=== PATIENT | male | born 1960 | race Caucasian/White ===

== ENCOUNTER 2023-03-14 21:40 | Emergency (ER) | payer MEDICARE, MEDICAID, SELFPAY ==
--- NOTE | ~2023-03-14 | CT_ITS ---
EXAMINATION: CT CHEST WITH CONTRAST CLINICAL INFORMATION: Left mastectomy. Swollen left arm. Evaluate for mass or SVC syndrome. COMPARISON: None available. TECHNIQUE: Multidetector volumetric CT imaging of the chest was obtained after the administration of 65 mL of Omnipaque 350 intravenous contrast without immediate adverse reactions. Axial MIP volume rendering provided. Sagittal and coronal reformatted images were obtained. This CT examination was performed using dose optimization techniques as appropriate, variously including the following: *Automated exposure control *Adjustment of mA and/or kV according to patient size (this includes techniques or standardized protocols for targeted exams where dose is matched to indication/reason for exam; i.e. extremities or head) *Use of iterative reconstruction technique DLP: 343 mGy-cm FINDINGS: LUNGS: There are scattered pulmonary nodules are shown on the solomon images, largest in the right upper lobe measures 7.5 x 6.4 mm. Additional pulmonary nodules measure 4 mm or less in mean diameter, as detailed extensively on the solomon images. MEDIASTINUM: Mild cardiomegaly. Great vessels normal caliber. No pericardial effusion. Coronary calcifications. Mildly enlarged precarinal lymph node measures 1.1 cm short axis. Imaged thyroid gland unremarkable. Venous structures are patent. PLEURA: There is no pleural effusion. No pleural mass or thickening. CHEST WALL/AXILLA: Left mastectomy. There is a soft tissue mass or lymph node in the left axilla along the posterior margin of the pectoralis minor measuring 3.0 x 1.6 x 1.1 cm. A mildly enlarged left axillary lymph node measures 1.7 x 1.0 cm. UPPER ABDOMEN: Simple cyst in the right kidney is benign. No follow-up imaging recommended. OSSEOUS STRUCTURES: No acute or suspicious osseous abnormalities. CT/CT chest w IV con IMPRESSION: * No evidence of SVC syndrome. * No venous obstruction etiology evident to explain the patient's left upper extremity swelling. There is however a soft tissue mass or lymph node in the left axilla along the posterior margin of the pectoralis minor measuring 3.0 x 1.6 x 1.1 cm, and a mildly enlarged left axillary lymph node measures 1.7 x 1.0 cm. These are suspicious for disease recurrence. * Mildly enlarged precarinal lymph node measures 1.1 cm short axis. This may be reactive. * Scattered pulmonary nodules are shown on the solomon images, largest in the right upper lobe measuring 7.0 mm mean diameter. Follow-up per oncology protocol. * Mild cardiomegaly. * Coronary calcifications.
--- NOTE | ~2023-03-14 | US_ITS ---
EXAMINATION: US VENOUS WITH DOPPLER UPPER EXTREMITY, LEFT CLINICAL INFORMATION: Left arm swelling COMPARISON: None available. TECHNIQUE: Ultrasound of the upper extremity is performed using compression sonography and color and pulse Doppler flow with assessment of augmentation of flow. There is also imaging and Doppler assessment of the jugular and subclavian veins. Spectral analysis with color-flow imaging is performed. FINDINGS: Respiratory variation, normal compression, and augmented flow are noted throughout the upper extremity including the axillary, brachial, cubital, and radial and ulnar veins. There is normal flow in the internal jugular and subclavian veins. There is no visible deep or superficial thrombophlebitis. If the patient's symptoms progress, a followup ultrasound in 5 -7 days might be of value to exclude proximal propagation from a nonvisualized distal arm vein. US/US venous duplex UE LT IMPRESSION: No DVT demonstrated in the left upper extremity
[2023-03-14 21:48] VITALS: BP 147/85; PULSE 87; RESP 18; TEMP 36.8; O2SAT 97; BMI 31.4
[2023-03-14 22:48] LABS: MANUAL DIFF FLAG NO
[2023-03-14 22:50] LABS: Basophils Percent Auto 0.5 % (0-2); Eosinophils Absolute Auto 0.2 X10*3/uL (0.0-0.4); Eosinophils Percent Auto 3.6 % (0-4); Hematocrit 41.2 % (42.0-52.0); Hemoglobin 13.6 g/dl (14.0-18.0); Imm Gran Abs Auto 0.02 X10*3/uL (0.00-0.03); Imm Gran Pct Auto 0.3 % (0.0-0.4); Lymphocytes Absolute Auto 2.8 X10*3/uL (1.2-4.9); Lymphocytes Percent Auto 43.2 % (20-40); Mean Corpuscular Hemoglobin 30.3 pg (27.0-33.0); Mean Corpuscular Volume 91.8 fL (80.0-98.0); Mean Platelet Volume 9.4 fL (9.4-12.4); Monocytes Absolute Auto 0.7 X10*3/uL (0.1-1.2); Monocytes Percent Auto 10.1 % (2-11); Neutrophils Absolute Auto 2.7 x10*3/uL (2.0-8.3); Neutrophils Percent Auto 42.3 % (45-73); Platelet Count 170 X10*3/uL (160-400); Red Blood Count 4.49 X10*6/uL (4.60-5.80); Red Cell Distribution Width 13.7 % (11.0-16.0); White Blood Count 6.4 X10*3/uL (4.8-10.8)
[2023-03-14 23:03] LABS: Alanine Aminotransferase 21 U/L (0-40); Albumin Level 3.7 g/dL (3.5-5.0); Alkaline Phosphatase 54 U/L (39-117); Anion Gap 11 (12-20); Aspartate Amino Transferase 23 U/L (5-37); Bilirubin Total 0.5 mg/dL (0.0-1.0); Blood Urea Nitrogen 25 mg/dL (9-16); Carbon Dioxide 25 mmol/L (22-29); Chloride 107 mmol/L (96-108); Creatinine Clr Calc Pharmacy 122.6; Estimated Glomerular Filt Rate > 60; Glucose Random 100 mg/dL (60-115); Potassium 4.1 mmol/L (3.3-5.1); Sodium 139 mmol/L (135-145); Total Protein 6.3 g/dL (6.5-8.0)
[2023-03-15 00:54] VITALS: BP 139/95; PULSE 82; RESP 14; TEMP 36.6; O2SAT 99
--- NOTE | 2023-03-15 01:34 | ED.GENADULT ---
HPI - General Adult General Chief complaint: General Medical Stated complaint: L arm swelling Time Seen by Provider: 03/15/23 01:33 Source: patient and family (, Mary) Mode of arrival: ambulatory Limitations: no limitations History of Present Illness HPI narrative: 62-year-old male who presents emergency department for evaluation of left hand and forearm swelling. Patient has a history of a left breast cancer status post mastectomy 5 years prior, he did not receive chemotherapy or radiation therapy but is on tamoxifen. He has been getting regular follow-ups with his oncology at the [facility]. Patient states that 2 weeks prior he noticed swelling of his left hand and left forearm the last approximately 3 days and then resolved. He states that 3 days prior to coming to the emergency department he again noticed swelling of his left hand and forearm which is got progressively worse. He called his PCP in was advised to go to the emergency department for evaluation. The patient denied fever, chills, chest pain, shortness of breath. He has not had any swelling of his right arm, neck, face. He has not noticed any flushing of his face or change in symptoms with lying flatter bending over. Related Data Home Medications Medication Instructions Recorded Confirmed tamoxifen 20 mg tablet 20 mg PO DAILY 02/11/21 08/23/22 Previous Rx's Medication Instructions Recorded atorvastatin 10 mg tablet 5 mg PO BEDTIME #90 tabs 07/08/22 metoprolol succinate 100 mg 100 mg PO BID #180 tabs 02/16/23 tablet,extended release 24 hr Allergies Allergy/AdvReac Type Severity Reaction Status Date / Time amlodipine Allergy Unknown cough Verified 08/23/22 07:54 sertraline [Zoloft] Allergy Unknown unkwown Verified 08/23/22 07:54 olmesartan AdvReac Intermediate cough Verified 08/23/22 07:54 Review of Systems Review of Systems: Yes all other systems are reviewed and are negative PMFSH Past Medical History PMFSH Narrative: Social history: Patient denies tobacco use. He occasionally drinks alcohol. He denies drug use. He is and his is here in the emergency department with him Medical History Annual physical exam Anxiety H/O ETOH abuse History of left breast cancer HTN (hypertension) Hyperlipidemia Surgical History H/O colonoscopy History of foot surgery Family History Family History Father No problems noted. Mother No problems noted. Social History Social History Housing: House Patient Tobacco Use Status: Never used Tobacco Smoked in Last 30 Days: No e-Cigarette/Vaping Use: Never Used Use of substances other than those prescribed or required for medical reasons: No Advance Directives: No Advance Directives Information Provided: No Current occupational status: unemployed Cognitive needs: No Hearing needs: No Vision needs: No Physical Exam ED Vital Signs: Vital Signs - 24 hr 03/14/23 21:48 03/15/23 00:54 Temperature 98.3 F 97.8 F Pulse Rate 87 82 Respiratory Rate 18 14 Blood Pressure 147/85 H 139/95 H Pulse Oximetry 97 99 Oxygen Delivery Method Room Air Room Air BMI result Body Mass Index 31.4 Const General: cooperative and no acute distress Orientation/consciousness: oriented to person and oriented to place Limitations: no limitations HENMT Head: Yes normal to inspection, Yes normocephalic and Yes atraumatic Ears: external ears normal General nose exam: Normal external nose present Face and sinus: Yes normal facial exam Mouth: Normal oral and palatal mucosa present Throat: Yes posterior oropharynx normal Eyes General: appearance normal, both eyes and all related structures Pupils: Equal, round and reactive pupils present Neck Neck: Yes normal visual inspection, Yes no lymphadenopathy, Yes trachea midline and Yes supple Chest Chest palpation & inspection: normal inspection of the chest and normal palpation of entire chest wall Resp Effort & Inspection: normal respiratory effort and able to speak in complete sentences Auscultation: clear to auscultation bilaterally Cardio Rate: regular rate Rhythm: regular rhythm Heart sounds: S1 normal heart sound present, S2 normal heart sound present and no murmurs GI Inspection: Yes normal to inspection Palpation (GI): Soft to palpation, nontender and no guarding Auscultation: normal bowel sounds General: Yes no CVA tenderness Back/Spine/Pelvis Back: no CVA tenderness Skin General skin exam: no rashes or lesions noted Neuro General: oriented to person and oriented to place Cranial nerves: Yes CN's II-XII intact bilaterally and Yes Equal, round and reactive pupils present Cognition (Neuro): normal cognition Motor exam (neuro): 5/5 motor strength present throughout Extrem Other: The patient does have swelling of his left hand which extends to just below the elbow, this is nonpitting edema, there is no increased redness or increased warmth, patient has no pain with palpation over the edematous area and there is no pain with movement of his joints Psych Appearance: grossly normal Speech and movement: Normal speech and movement present Affect: normal affect Attitude: cooperative Thought process: Normal thought process present Thought content: Normal thought content present Medical Decision Making Medical Decision Making [facility] Narrative: 62-year-old male with a history of left breast cancer status post mastectomy 5 years prior who presents emergency department for evaluation intermittent swelling of his left upper extremity with the 1st episode being 2 weeks prior lasting approximately 3 days with recurrence of the left hand and forearm swelling 3 days prior. Patient has had no pain or erythema over the hand or forearm. He has had no other concerning symptoms such as shortness of breath, dyspnea on exertion, neck swelling, facial swelling or facial erythema. I ordered laboratory evaluation to include CBC, CMP. Duplex ultrasound of the left upper extremity was also ordered 0213: My interpretation of the patient's diagnostic data is as follows: CBC was normal. CMP was normal. Duplex ultrasound of left upper extremity revealed no DVT. Given these findings I am concerned that the patient may have a chest tumor causing superior vena cava syndrome. Therefore I ordered a CT scan of the chest with IV contrast. 0437: CT scan revealed no mediastinal mass evidence for SVC syndrome however the patient does have abnormal left axillary adenopathy which is suspicious for recurrent disease. This may be causing poor panic drainage from the left arm which may explain the intermittent swelling. I did discuss this finding with the patient the patient's white the patient will need to follow-up with [facility] for re-evaluation of these findings. Patient was given printed and verbal instructions and discharged home. Differential Diagnosis Differential diagnosis includes but is not limited to left upper extremity DVT, nonpitting edema, inflammatory arthritis, superior vena cava syndrome secondary to chest tumor Admission/Observation Consideration of admission/observation: Escalation of care including admission/observation considered Lab Data [facility] Lab Attestation statement: I reviewed the patient's lab results. Please see [facility] 03/14/23 22:40 03/14/23 22:40 Labs: Lab Results 03/14/23 03/14/23 Range/Units 22:40 22:40 WBC 6.4 (4.8-10.8) X10*3/uL RBC 4.49 L (4.60-5.80) X10*6/uL Hgb 13.6 L (14.0-18.0) g/dl Hct 41.2 L (42.0-52.0) % MCV 91.8 (80.0-98.0) fL MCH 30.3 (27.0-33.0) pg MCHC 33.0 (31.0-36.0) g/dl RDW 13.7 (11.0-16.0) % Plt Count 170 (160-400) X10*3/uL MPV 9.4 (9.4-12.4) fL Immature Gran % (Auto) 0.3 (0.0-0.4) % Neut % (Auto) 42.3 L (45-73) % Lymph % (Auto) 43.2 H (20-40) % [place] % (Auto) 10.1 (2-11) % Eos % (Auto) 3.6 (0-4) % Baso % (Auto) 0.5 (0-2) % Lymph # (Auto) 2.8 (1.2-4.9) X10*3/uL [place] # (Auto) 0.7 (0.1-1.2) X10*3/uL Eos # (Auto) 0.2 (0.0-0.4) X10*3/uL Baso # (Auto) 0.0 (0.0-0.2) X10*3/uL Abs Immat Gran (auto) 0.02 (0.00-0.03) X10*3/uL Absolute Neuts (auto) 2.7 (2.0-8.3) x10*3/uL Absolute Nucleated RBC 0.000 (0.0-0.012) X10*3/uL Nucleated RBC % (auto) 0.0 (0.0-0.2) /100WBC Sodium 139 (135-145) mmol/L Potassium 4.1 (3.3-5.1) mmol/L Chloride 107 (96-108) mmol/L Carbon Dioxide 25 (22-29) mmol/L Anion Gap 11 L (12-20) BUN 25 H (9-16) mg/dL Creatinine 0.75 (0.5-1.4) mg/dL Estim Creat Clear Calc 122.6 Estimated GFR > 60 Random Glucose 100 (60-115) mg/dL Calcium 9.0 (8.4-10.2) mg/dL Total Bilirubin 0.5 (0.0-1.0) mg/dL AST 23 (5-37) U/L ALT 21 (0-40) U/L Alkaline Phosphatase 54 (39-117) U/L Total Protein 6.3 L (6.5-8.0) g/dL Albumin 3.7 (3.5-5.0) g/dL Radiology Impression Discussion of test interpretation with radiology: I have reviewed the radiologist's reading. Radiologist Impression: US venous duplex UE LT IMPRESSION: No DVT demonstrated in the left upper extremity Dictated By:Tylor Sauceda MD CT/CT chest w IV con IMPRESSION: * No evidence of SVC syndrome. * No venous obstruction etiology evident to explain the patient's left upper extremity swelling. There is however a soft tissue mass or lymph node in the left axilla along the posterior margin of the pectoralis minor measuring 3.0 x 1.6 x 1.1 cm, and a mildly enlarged left axillary lymph node measures 1.7 x 1.0 cm. These are suspicious for disease recurrence. * Mildly enlarged precarinal lymph node measures 1.1 cm short axis. This may be reactive. * Scattered pulmonary nodules are shown on the solomon images, largest in the right upper lobe measuring 7.0 mm mean diameter. Follow-up per oncology protocol. * Mild cardiomegaly. * Coronary calcifications. Dictated By:Hal Esquivel MD Independent Historian Clinical information obtained from an independent historian. History obtained from or confirmed by: Spouse Discharge Plan Discharge Clinical Impression: Left arm swelling, Axillary adenopathy Patient Disposition: Home, Self-Care Instructions: Lymphadenopathy (ED) Additional Instructions: Your blood work was normal. The duplex ultrasound of your left arm revealed no blood clot at this time. You will need a repeat ultrasound in 4-7 days to make sure that there is no blood clot that was not seen on the initial study. The CT scan of your chest with IV contrast revealed no chest mass and good flow in the superior vena cava therefore you do not have superior vena cava syndrome. The CT scan of your chest however did reveal abnormal lymph nodes in your left axillary area (underarm area). This is concerning and could be caused by recurrence of your breast cancer or may be caused by a another type of cancer. Call your oncologist at [facility] to date to discuss this finding to get urgent follow-up to determine if you have cancer is the cause of these enlarged lymph nodes. Follow-up with your doctor in 2 days. Please return to the emergency department if your symptoms get worse or if you develop any symptoms that are concerning to you. Below is the radiologist impression of your CT scan, you can read the underline portion to the oncologist office. CT chest w IV con IMPRESSION: * No evidence of SVC syndrome. * No venous obstruction etiology evident to explain the patient's left upper extremity swelling. There is however a soft tissue mass or lymph node in the left axilla along the posterior margin of the pectoralis minor measuring 3.0 x 1.6 x 1.1 cm, and a mildly enlarged left axillary lymph node measures 1.7 x 1.0 cm. These are suspicious for disease recurrence. * Mildly enlarged precarinal lymph node measures 1.1 cm short axis. This may be reactive. * Scattered pulmonary nodules are shown on the solomon images, largest in the right upper lobe measuring 7.0 mm mean diameter. Follow-up per oncology protocol. * Mild cardiomegaly. * Coronary calcifications. Dictated By:Hal Esquivel MD Prescriptions: No Action atorvastatin 10 mg tablet 5 mg PO BEDTIME Qty: 90 3RF metoprolol succinate 100 mg tablet extended release 24 hr 100 mg PO BID Qty: 180 3RF tamoxifen 20 mg tablet 20 mg PO DAILY
--- NOTE | 2023-03-15 02:09 | PC.NURSE ---
dr miller placed order for additional ct imaging with IV contrast. this rn placed iv 20 g in R AC. pt anxious at this time. at bedside. pt taken down to ct at this time
[2023-03-15 04:55] VITALS: BP 144/88; PULSE 69; RESP 18; TEMP 36.6; O2SAT 96
--- NOTE | 2023-03-15 05:20 | PC.NURSE ---
vss. skin pwd. pt ambulatory a discharge. pt's at bedside. iv removed at time of discharge. pt provided with disc copy of imaging. pt provided with discharge packet. pt verbalized understanding of discharge plan
== END 2023-03-15 05:24 | disposition home or self-care (01) ==
PROVIDERS: Emergency Provider Emergency Medicine Emergency Medical Services; PCP Internal Medicine
DX: R60.0 Localized edema (principal); R59.1 Generalized enlarged lymph nodes; M54.6 Pain in thoracic spine; R07.89 Other chest pain; Z79.899 Other long term (current) drug therapy
CPT/HCPCS: 36415; 71260; 80053; 85025; 93971; 99284

== ENCOUNTER 2024-01-26 08:17 | Outpatient (REF) | payer MEDICARE, MEDICAID, SELFPAY ==
[2024-01-26 10:26] LABS: MANUAL DIFF FLAG NO
[2024-01-26 10:50] LABS: Basophils Absolute Auto 0.1 X10*3/uL (0.0-0.2); Basophils Percent Auto 1.2 % (0-2); Eosinophils Absolute Auto 0.1 X10*3/uL (0.0-0.4); Eosinophils Percent Auto 2.7 % (0-4); Hematocrit 38.4 % (42.0-52.0); Hemoglobin 12.9 g/dl (14.0-18.0); Imm Gran Abs Auto 0.01 X10*3/uL (0.00-0.03); Imm Gran Pct Auto 0.2 % (0.0-0.4); Lymphocytes Percent Auto 48.7 % (20-40); Mean Corpuscular HGB Conc 33.6 g/dl (31.0-36.0); Mean Corpuscular Hemoglobin 33.6 pg (27.0-33.0); Mean Platelet Volume 9.3 fL (9.4-12.4); Monocytes Absolute Auto 0.4 X10*3/uL (0.1-1.2); Monocytes Percent Auto 8.5 % (2-11); Neutrophils Absolute Auto 1.6 x10*3/uL (2.0-8.3); Neutrophils Percent Auto 38.7 % (45-73); Platelet Count 180 X10*3/uL (160-400); Red Blood Count 3.84 X10*6/uL (4.60-5.80); Red Cell Distribution Width 12.5 % (11.0-16.0); White Blood Count 4.1 X10*3/uL (4.8-10.8)
[2024-01-26 11:09] LABS: Alanine Aminotransferase 12 U/L (0-40); Albumin Level 3.9 g/dL (3.5-5.0); Alkaline Phosphatase 70 U/L (39-117); Anion Gap 10 (12-20); Aspartate Amino Transferase 20 U/L (5-37); Bilirubin Total 0.5 mg/dL (0.0-1.0); Blood Urea Nitrogen 23 mg/dL (9-16); Calcium 9.6 mg/dL (8.4-10.2); Carbon Dioxide 29 mmol/L (22-29); Chloride 104 mmol/L (96-108); Cholesterol 161 mg/dL (<200); Estimated Glomerular Filt Rate > 60; Glucose Fasting 92 mg/dL (60-99); HDL Cholesterol 52 mg/dL (>40); LDL Cholesterol Calculated 86 mg/dL (<100); Potassium 4.1 mmol/L (3.3-5.1); Sodium 139 mmol/L (135-145); Total Protein 7.2 g/dL (6.5-8.0); Triglycerides 118 mg/dL (<150)
[2024-01-26 11:27] LABS: TSH reflex Free T4 1.18 uIU/mL (0.32-4.0)
== END 2024-01-26 08:18 | disposition home or self-care (01) ==
LOC: HO.HMGCLDS 08:17
PROVIDERS: PCP Internal Medicine; Visit Provider Internal Medicine
DX: Z00.00 Encounter for general adult medical examination without abnormal findings (principal); E78.5 Hyperlipidemia, unspecified; I10 Essential (primary) hypertension
CPT/HCPCS: 36415; 80053; 80061; 84443; 85025

== ENCOUNTER 2024-01-31 09:20 | Outpatient (AMB) | payer MEDICARE, MEDICAID, SELFPAY ==
[2024-01-31 09:21] VITALS: BP 128/74; PULSE 81; O2SAT 97; BMI 33.2
--- NOTE | 2024-01-31 09:21 | MHC.PC.OV ---
Vital Signs 01/31/24 09:21 Height 5 ft 11 in Weight 238 lb BMI 33.2 BP 128/74 Blood Pressure Location Rt brachial Position Sitting Pulse 81 Pulse Source Pulse Oximeter Pulse Oximetry (%) 97 Oxygen Delivery Method Room Air Intake Visit Reasons: Physical exam Intake Note: Pt is here today for PE. Allergies amlodipine Allergy (Unknown, Verified 01/31/24 09:23) cough sertraline [Zoloft] Allergy (Unknown, Verified 01/31/24 09:23) unkwown olmesartan Adverse Reaction (Intermediate, Verified 01/31/24 09:23) cough Tobacco use date assessed: 01/31/24 Fall risk assessment: No Falls in past year Last assessed Fall Risk: 01/31/24 Dental Screening Dental Screen Date: 01/31/24 Did you have a dental visit in the last 12 months?: Yes Did you have a dental problem in the last 6 months where you did not have access to dental care?: No Was dental information given to patient?: Patient has dentist HPI Physical exam HPI Details Pt presents for PE. Pt f/u with [facility] for recurrent breast ca, undergoing treatment. [facility] Medical History (Updated 01/31/24 @ 10:01 by Valerie Sharma MD) Annual physical exam History of left breast cancer Hyperlipidemia H/O ETOH abuse Anxiety HTN (hypertension) Surgical History H/O colonoscopy History of foot surgery Family History Father No problems noted. Mother No problems noted. Social History Housing: House Patient Tobacco Use Status: Never used Tobacco e-Cigarette/Vaping Use: Never Used service: No Current occupational status: unemployed Cognitive needs: No Hearing needs: No Vision needs: Yes Questionnaire PHQ-9 Over the last 2 weeks, how often have you been bothered by any of the following problems? 1. Little interest or pleasure in doing things: not at all 2. Feeling down, depressed, or hopeless: not at all 3. Trouble falling or staying asleep, or sleeping too much: not at all 4. Feeling tired or having little energy: not at all 5. Poor appetite or overeating: not at all 6. Feeling bad about yourself - or that you are a failure or have let yourself or your family down: not at all 7. Trouble concentrating on things, such as reading the newspaper or watching television: not at all 8. Moving or speaking so slowly that other people could have noticed. Or the opposite - being so fidgety or restless that you have been moving around a lot more than usual: not at all 9. Thoughts that you would be better off or of hurting yourself in some way: not at all Total score: 0 Depression Screening Interpretation: Negative Depression Screening Done: Yes Source: Developed by Drs. Collin Hall, Yanet Pascal, Shankar West and colleagues, with an educational shaquille from [employer]. Thrive Questionnaire Date Thrive assessed: 01/31/24 I am a: Patient What is your living situation today?: I have a steady place to live Within the past 12 months, did the food you bought not last and you didn't have the money to get more?: Never true Within the past 12 months, did you worry whether your food would run out before you got money to buy more?: Never true Do you have trouble paying for medicines?: No Do you have trouble getting transportation to medical appointments?: No Do you have trouble paying your heating and electricity bill?: No Do you have trouble taking care of your child, family member or friend?: No Do you have trouble with day-to-day activities such as bathing, preparing meals, shopping, managing finances, etc.?: No Are you currently unemployed and looking for a job?: No Are you interested in more education?: No Please select the resources that you would like help with: None THRIVE Score: 0 AUDIT C Alcohol Use Questionnaire (AUDIT-C) 1. How often do you have a drink containing alcohol?: Never 3. How often do you have six or more drinks on one occasion?: Never Total Score: 0 ALCIDES-7 AMB Questionnaire ALCIDES-7 Date ALCIEDS - 7 assessed: 01/31/24 Feeling nervous, anxious, or on edge: 0 = Not at all Not being able to stop or control worryin = Not at all Worrying too much about different things: 0 = Not at all Trouble relaxin = Not at all Being so restless that it is hard to sit still: 0 = Not at all Becoming easily annoyed or irritable: 0 = Not at all Feeling afraid as if something awful might happen: 0 = Not at all Total ALCIDES-7 score (0-4 normal; 5-9 mild; 10-14 moderate; 15-21 severe): 0 Source: Developed by Drs. Collin Hall, Yanet Pascal, Shankar West and colleagues, with an educational shaquille from [employer]. ALCIDES-7 Assessment Billing ALCIDES-7 Assessment Tool: ALCIDES-7 Assessment 53627 Review of Systems Const All systems reviewed & are unremarkable except as noted in HPI and below Reports no additional complaints Eyes Reports no additional complaints ENT Reports no additional complaints Card Reports no additional complaints Resp Reports no additional complaints GI Reports no additional complaints Reports no additional complaints Physical exam (Primary Care) Vital Signs: Last Vital Signs Pulse 81 01/31/24 09:21 BP 128/74 01/31/24 09:21 Pulse Ox 97 01/31/24 09:21 Oxygen Delivery Method Room Air 01/31/24 09:21 BMI result Body Mass Index 33.2 Tobacco/Smoking Status: Tobacco use Status Tobacco use date assessed 01/31/24 01/31/24 09:26 Patient Tobacco Use Status Never used Tobacco 01/31/24 09:26 e-Cigarette/Vaping Use Never Used 01/31/24 09:21 PHQ-9: PHQ-9 Score PHQ-9: Total score 0 01/31/24 09:31 Depression Screening Interpretation: Negative Thrive Assessment: Date of Thrive Assessment Date Thrive assessed 01/31/24 01/31/24 09:31 Const General: no acute distress HENMT Head: Yes normal to inspection Ears: hearing grossly normal bilaterally General nose exam: Normal external nose present Face and sinus: Yes normal facial exam Mouth: Normal oral and palatal mucosa present Throat: Yes posterior oropharynx normal Eyes General: appearance normal, both eyes and all related structures Neck Neck: Yes no lymphadenopathy and Yes supple Resp Effort & Inspection: normal respiratory effort Auscultation: clear to auscultation bilaterally Cardio Rhythm: regular rhythm Heart sounds: S1 normal heart sound present and S2 normal heart sound present GI Inspection: Yes normal to inspection Palpation (GI): Soft to palpation Percussion: Yes normal to percussion Auscultation: normal bowel sounds Assessment and Plan Assessment & Plan (1) Hyperlipidemia: Code(s): E78.5 - Hyperlipidemia, unspecified Plan: Continue statin (2) HTN (hypertension): Comment: BP goal <130/80 Code(s): I10 - Essential (primary) hypertension Plan: Continue metoprolol (3) Annual physical exam: Code(s): Z00.00 - Encounter for general adult medical examination without abnormal findings Plan: Well-balanced diet regular physical activity weight loss discussed with the patient (4) History of left breast cancer: Comment: s/p mastectomy 04/2018, on Tamoxifen for 5 yrs, recurrence [facility] LN [facility] Code(s): Z85.3 - Personal history of malignant neoplasm of breast Plan: Follow-up with oncology Coding Level of Care Code Est Pt Prev Care 40-64y(91255) Diagnoses Hyperlipidemia E78.5 HTN (hypertension) I10 Annual physical exam Z00.00 History of left breast cancer Z85.3 Additional Codes ALCIDES-7 Assessment Billing - ALCIDES-7 Assessment Tool: ALCIDES-7 Assessment [id number] ([id number])
== END 2024-01-31 10:01 | disposition home or self-care (01) ==
PROVIDERS: PCP Internal Medicine; Visit Provider Internal Medicine
DX: E78.5 Hyperlipidemia, unspecified (principal); I10 Essential (primary) hypertension; Z00.00 Encounter for general adult medical examination without abnormal findings; Z85.3 Personal history of malignant neoplasm of breast
CPT/HCPCS: 99396

== ENCOUNTER 2025-02-06 09:05 | Outpatient (AMB) | payer MEDICARE, SELFPAY ==
[2025-02-06 09:07] VITALS: BP 100/66; PULSE 89; RESP 18; TEMP 36.7; O2SAT 98; BMI 33.5
--- NOTE | 2025-02-06 09:07 | A.OFFPC_ITS ---
Vital Signs 02/06/25 09:07 Height 5 ft 11 in Weight 240 lb BMI 33.5 BP 100/66 Blood Pressure Location Rt brachial Position Sitting Respiration 18 Pulse 89 Pulse Source Pulse Oximeter Temp 98.0 F Temp Source Oral Pulse Oximetry (%) 98 Oxygen Delivery Method Room Air Intake Visit Reasons: PE Intake Note: Pt is here today for PE. Pt needs refill on Atorvastatin. Allergies amlodipine Allergy (Unknown, Verified 02/06/25 09:15) cough sertraline [Zoloft] Allergy (Unknown, Verified 02/06/25 09:15) unkwown olmesartan Adverse Reaction (Intermediate, Verified 02/06/25 09:15) cough Medication List - Last Reconciled 02/06/25 by Valerie Sharma MD abemaciclib (Verzenio) mg PO amlodipine 2.5 mg PO DAILY apixaban (Eliquis) 5 mg PO BID atorvastatin 5 mg (1/2 x 10 mg) PO BEDTIME famotidine 40 mg PO DAILY letrozole 2.5 mg PO DAILY metoprolol succinate ER 100 mg PO BID torsemide 20 mg PO DAILY Tobacco use date assessed: 02/06/25 Fall risk assessment: No Falls in past year Last assessed Fall Risk: 02/06/25 Dental Screening Dental Screen Date: 02/06/25 Did you have a dental visit in the last 12 months?: Yes Did you have a dental problem in the last 6 months where you did not have access to dental care?: No Was dental information given to patient?: Patient has dentist HPI PE HPI Details Patient presents for a physical. Hypertension hyperlipidemia , controlled current medications. He is currently undergoing treatment for metastatic breast CA. Patient has persistent AFib and is established with Cardiology. [facility] Medical History (Updated 02/06/25 @ 10:10 by Valerie Sharma MD) Annual physical exam History of left breast cancer Hyperlipidemia H/O ETOH abuse Anxiety HTN (hypertension) Surgical History History of lymph node excision H/O colonoscopy History of foot surgery Family History Father No problems noted. Mother No problems noted. Social History Housing: House Patient Tobacco Use Status: Never used Tobacco e-Cigarette/Vaping Use: Never Used service: No Current occupational status: unemployed Cognitive needs: No Hearing needs: No Vision needs: Yes Questionnaire PHQ-9 Over the last 2 weeks, how often have you been bothered by any of the following problems? 1. Little interest or pleasure in doing things: not at all 2. Feeling down, depressed, or hopeless: not at all 3. Trouble falling or staying asleep, or sleeping too much: not at all 4. Feeling tired or having little energy: not at all 5. Poor appetite or overeating: not at all 6. Feeling bad about yourself - or that you are a failure or have let yourself or your family down: not at all 7. Trouble concentrating on things, such as reading the newspaper or watching television: not at all 8. Moving or speaking so slowly that other people could have noticed. Or the opposite - being so fidgety or restless that you have been moving around a lot more than usual: not at all 9. Thoughts that you would be better off or of hurting yourself in some way: not at all Total score: 0 Depression Screening Interpretation: Negative Depression Screening Done: Yes 90995 - PHQ-9 Billing: Yes Source: Developed by Drs. Collin Hall, Yanet Pascal, Shankar West and colleagues, with an educational shaquille from [employer]. Thrive Questionnaire Date Thrive assessed: 02/06/25 I am a: Patient What is your living situation today?: I have a steady place to live Within the past 12 months, did the food you bought not last and you didn't have the money to get more?: Never true Within the past 12 months, did you worry whether your food would run out before you got money to buy more?: Never true Do you have trouble paying for medicines?: No Do you have trouble getting transportation to medical appointments?: No Do you have trouble paying your heating and electricity bill?: No Do you have trouble taking care of your child, family member or friend?: No Do you have trouble with day-to-day activities such as bathing, preparing meals, shopping, managing finances, etc.?: No Are you currently unemployed and looking for a job?: No Are you interested in more education?: No Please select the resources that you would like help with: None Currently or been in a relationship where the following occur: No concerns reported THRIVE Score: 0 AUDIT C Alcohol Use Questionnaire (AUDIT-C) 1. How often do you have a drink containing alcohol?: Never 3. How often do you have six or more drinks on one occasion?: Never Total Score: 0 ALCIDES-7 AMB Questionnaire ALCIDES-7 Date ALCIDES - 7 assessed: 02/06/25 Feeling nervous, anxious, or on edge: 0 = Not at all Not being able to stop or control worryin = Not at all Worrying too much about different things: 0 = Not at all Trouble relaxin = Not at all Being so restless that it is hard to sit still: 0 = Not at all Becoming easily annoyed or irritable: 0 = Not at all Feeling afraid as if something awful might happen: 0 = Not at all Total ALCIDES-7 score (0-4 normal; 5-9 mild; 10-14 moderate; 15-21 severe): 0 Source: Developed by Drs. Collin Hall, Yanet Pascal, Shankar West and colleagues, with an educational shaquille from [employer]. ALCIDES-7 Assessment Billing ALCIDES-7 Assessment Tool: ALCIDES-7 Assessment 46658 Review of Systems Const All systems reviewed & are unremarkable except as noted in HPI and below Reports no additional complaints Eyes Reports no additional complaints ENT Reports no additional complaints Card Reports no additional complaints Resp Reports no additional complaints GI Reports no additional complaints Reports no additional complaints Physical exam (Primary Care) Vital Signs: Last Vital Signs Temp 98.0 F 02/06/25 09:07 Pulse 89 02/06/25 09:07 Resp 18 02/06/25 09:07 BP 100/66 02/06/25 09:07 Pulse Ox 98 02/06/25 09:07 Oxygen Delivery Method Room Air 02/06/25 09:07 BMI result Body Mass Index 33.5 Tobacco/Smoking Status: Tobacco use Status Tobacco use date assessed 02/06/25 02/06/25 09:18 Patient Tobacco Use Status Never used Tobacco 02/06/25 09:18 e-Cigarette/Vaping Use Never Used 02/06/25 09:07 PHQ-9: PHQ-9 Score PHQ-9: Total score 0 02/06/25 09:19 Depression Screening Interpretation: Negative Thrive Assessment: Date of Thrive Assessment Date Thrive assessed 02/06/25 02/06/25 09:18 Currently or been in a relationship where the following occur: No concerns reported Const General: no acute distress HENMT Ears: hearing grossly normal bilaterally Face and sinus: Yes normal facial exam Mouth: Normal oral and palatal mucosa present Eyes General: appearance normal, both eyes and all related structures Neck Neck: Yes no lymphadenopathy and Yes supple Resp Effort & Inspection: normal respiratory effort Auscultation: clear to auscultation bilaterally Cardio Rhythm: regular rhythm Heart sounds: S1 normal heart sound present and S2 normal heart sound present GI Inspection: Yes normal to inspection Palpation (GI): Soft to palpation Percussion: Yes normal to percussion Auscultation: normal bowel sounds Immunizations pneumoc 20-em conj-dip cr(PF) 0.5 mL IM syringe Performing Provider: Valerie Sharma MD Performing Location: [facility] Administered by: BRIGHT Ward on 02/06/25 09:53 Dose Route Admin Location Dispensed Lot Number Expiration Date NDC Welt Sole Layer 0.5 mL IM Right Deltoid 0.5 mL [id number] 04/28/26 9040-4461-83 [employer] VIS Given Date VIS Provided VIS Publication Date 02/06/25 Single Vaccine 21 Eligibility Eligibility Date Funding Source Not [facility] Eligible 02/06/25 Private Coding Level of Care Code Est Pt Prev Care >65y(00432) Diagnoses HTN (hypertension) I10 Hyperlipidemia E78.5 New onset a-fib I48.91 History of left breast cancer Z85.3 Annual physical exam Z00.00 Additional Codes ALCIDES-7 Assessment Billing - ALCIDES-7 Assessment Tool: ALCIDES-7 Assessment 78924 ([id number]) PHQ-9 - 57922 - PHQ-9 Billing: Yes ([id number]) Assessment & Plan Assessment & Plan (1) HTN (hypertension): Comment: BP goal <130/80 Code(s): I10 - Essential (primary) hypertension Category: Medical Plan: Continue current medications (2) Hyperlipidemia: Code(s): E78.5 - Hyperlipidemia, unspecified Category: Medical Plan: Continue statin return for fasting blood work (3) New onset a-fib: Comment: Echo LVEF 60%, LAE,RV dilated, mildly reduced systolic function, PA systolic pressure 25-30 mmHg 09/20, f/u with cardiology Code(s): I48.91 - Unspecified atrial fibrillation Category: Medical Plan: Rate controlled on metoprolol anticoagulated on Eliquis. Patient is established with Cardiology (4) History of left breast cancer: Comment: s/p mastectomy 04/2018, on Tamoxifen for 5 yrs, recurrence in LN 01/19 f/u with [facility], stage IV status post radiation 2023, on Verzenio and letrozole Code(s): Z85.3 - Personal history of malignant neoplasm of breast Category: Medical Plan: Follow-up with oncology at [facility] (5) Annual physical exam: Code(s): Z00.00 - Encounter for general adult medical examination without abnormal findings Category: Medical Plan: Well-balanced diet regular physical activity weight loss discussed with the patient he had negative colonoscopy in 2018 Orders: Orders TSH reflex Free T4 Today E78.5 - Hyperlipidemia, unspecified, I10 - Essential (primary) hypertension, I48.91 - Unspecified atrial fibrillation Pneumococcal 20 Immunization Today Z23 - Encounter for immunization AMB EKG-In Office Today I10 - Essential (primary) hypertension, I48.91 - Unspecified atrial fibrillation Comprehensive [place]. Panel Fast Today E78.5 - Hyperlipidemia, unspecified, I10 - Essential (primary) hypertension, I48.91 - Unspecified atrial fibrillation Lipid Panel Today E78.5 - Hyperlipidemia, unspecified, I10 - Essential (primary) hypertension, I48.91 - Unspecified atrial fibrillation Medications: Refilled atorvastatin 5 mg (1/2 x 10 mg) PO BEDTIME 50 tabs 3RF
--- OUTSIDE RECORDS SUMMARY | 2025-02-06 09:41 | XMS_ITS ---
Author Name [facility] Organization Unknown History of Medication Use Medication Directions Dispensed Refills Start Date End Date [facility] clindamycin 1 % topical gel APPLY TO AFFECTED AREA TWICE A DAY active famotidine 40 mg tablet active atorvastatin 10 mg tablet TAKE 1/2 TABLET BY MOUTH EVERY DAY AT BEDTIME active letrozole 2.5 mg tablet TAKE 1 TABLET (2.5 MG TOTAL) BY MOUTH DAILY. FOLLOW INSTRUCTIONS GIVEN BY PROVIDER. active oseltamivir 75 mg capsule TAKE 1 CAPSULE BY MOUTH TWICE A DAY FOR 5 DAYS active lorazepam 0.5 mg tablet TAKE 1 TABLET BY MOUTH EVERY 6 HOURS NEEDED FOR ANXIETY. active torsemide 20 mg tablet TAKE 1 TABLET BY MOUTH DAILY active clindamycin HCl 300 mg capsule TAKE 1 CAPSULE BY MOUTH THREE TIMES A DAY FOR 10 DAYS active Eliquis 5 mg tablet TAKE 1 TABLET BY MOUTH TWICE A DAY active furosemide 20 mg tablet TAKE 1 TABLET BY MOUTH EVERY DAY DIRECTED active ipratropium bromide 21 mcg (0.03 %) nasal spray INHALE 2 SPRAYS BY NASAL ROUTE TWO TIMES A DAY active amlodipine 2.5 mg tablet TAKE 1 TABLET BY MOUTH EVERY DAY active metoprolol succinate ER 100 mg tablet,extended release 24 hr TAKE 1 TABLET BY MOUTH TWICE A DAY active Verzenio 150 mg tablet active oxycodone 5 mg tablet TAKE 1 TABLET (5 MG TOTAL) BY MOUTH EVERY 6 HOURS NEEDED (PARTIAL FILL OKAY) active Problems Problem Status Onset Date Problem Type Date of Resoluti on Source Pain of right wrist active 2024-12-20 ProblemAct ENS_AONECT Encounters Encounter Type Encounter Reason Primary Diagnosis Location Date Ambulatory [facility] 01/15/2025 Ambulatory [facility] 01/10/2025 Ambulatory [facility] 12/27/2024 Ambulatory [facility] 12/27/2024 Ambulatory [facility] 12/27/2024 Ambulatory [facility] 12/24/2024 Ambulatory [facility] 12/23/2024 Ambulatory [facility] 12/20/2024 Ambulatory [facility] 12/20/2024 Ambulatory [facility] 12/20/2024 Ambulatory [facility] 12[facility]20/2024 Ambulatory [facility] 12/20/2024 Ambulatory [facility] 12/20/2024 Ambulatory [facility] 12/20/2024 Ambulatory [facility] 12/19/2024 Ambulatory [facility] 12/19/2024
--- OUTSIDE RECORDS SUMMARY | 2025-02-06 09:41 | XMS_ITS | Encounter Summary ---
Author Organization [facility] Address [address] [facility] [address] [place] [address] Phone Care Team Providers Care Maori Liaison Adviser Name Role Phone Valerie Sharma MD Primary Care Provider [phone] Codi Mcdonald MD, MPH Unavailable + [phone] Nikhil Sandoval NURSING OFFICER Unavailable + [phone] Brynn Cohn WINDOWS SYSTEMS ARCHITECT Unavailable [phone] June Park MD Unavailable Encounter Details Date Type Department Care Team ([facility] Contact Info) Description 03/15/2023 Procedure Pass [facility] [place], Mammography, S[facility] Imaging Department [address] [place] [id number] Social History Tobacco Use Types Packs/Day Years Used Date Smoking Tobacco: Former Cigarettes Q uit: 10/30/1987 Smokeless Tobacco: Never Alcohol Use Standard Drinks/Week Comments Yes 0 (1 standard drink = 0.6 oz pur e alcohol) Education Answer Date Recorded Are you interested in more education? Not on fany e 02/24/2023 Are you concerned about learning? Not on file 02/24/2023 No 02/24/2023 No 02/24/2023 Sex and Gender Information Value Date Recorded Sex Assigned at Male 03/16/2023 8:51 AM EDT Gender Identity Male 03/16/2023 8:51 AM EDT Sexual Orientation Straight 11/01/2023 10 :13 AM EST documented as of this encounter Plan of Treatment Upcoming Encounters Date Type Department Care Team (Late Contact Info) Description 04/09/2025 12:50 PM EDT Blood Draw Laboratory Services, [facility] [email or web address] [address] [place], [place] Codi Mcdonald MD, MPH [address] [place] [address] [email or web address] 04/09/2025 1:30 PM EDT Office Visit [facility], [facility] [place] [facility], [facility] [address], [address] [place] [address] Codi Mcdonald MD, MPH [address] [place] [address] [email or web address] 04/09/2025 2:15 PM EDT Infusion Infusion Therapy Services [facility], [facility] [address] [facility] [facility] [address] [place] [address] oCdi Mcdonald MD, MPH [address] [place] [address] [email or web address] documented as of this encounter Visit Diagnoses Not on filedocumented in this encounter Additional Health Concerns Infection Onset Date Last Indicated Resolved Time CoV-Exposed 06/17/2023 06/19/2023 06/27/2023 1:24 AM EDT documented as of this encounter Care Teams Maori Liaison Adviser Relationship Specialty Start Date End Date Valerie Sharma MD [address] [place] [address] PCP - General Internal Medicine 05/30/18 Codi Mcdonald MD, MPH [address] [place] [phone] [email or web address] Medical Oncology 12/25/19 Nikhil Sandoval CNP [address] [place] [phone] [email or web address] Oncology 03/07/22 Brynn Cohn, [address] [address] [email or web address] Phys Ther 06/30/23 June Park MD [address] [place] [phone] [email or web address] Radiation Oncology 07/22/24 documented as of this encounter Additional Source Comments The information contained in this document represents components of the legal health record. It is not the complete legal health record.[facility]
--- OUTSIDE RECORDS SUMMARY | 2025-02-06 09:41 | XMS_ITS | Encounter Summary ---
Author Organization [facility] Address [address] [facility] [address] [place] [address] Phone Care Team Providers Care Owner/Photographer Name Role Phone Valerie Sharma MD Primary Care Provider [phone] Codi Mcdonald MD, MPH Unavailable + [phone] Nikhil Sandoval [facility] Unavailable + [phone] Brynn Cohn [facility] Unavailable [phone] June Park MD Unavailable Encounter Details Date Type Department Care Team (Late st Contact Info) Description 08/02/2021 Procedure Pass [facility] [place], Mammography, Sindi Lank Imaging Department [address] [place] [address] Social History Tobacco Use Types Packs/Day Years Used Date Smoking Tobacco: Former Cigarettes Q uit: 1988 Smokeless Tobacco: Never Alcohol Use Standard Drinks/Week Comments Yes 0 (1 standard drink = 0.6 oz pur e alcohol) Sex and Gender Information Value Date Recorded Sex Assigned at Male 03/16/2023 8:51 AM EDT Gender Identity Male 03/16/2023 8:51 AM EDT Sexual Orientation Straight 11/01/2023 10 :13 AM EST documented as of this encounter Plan of Treatment Upcoming Encounters Date Type Department Care Team (Late st Contact Info) Description 04/09/2025 12:50 PM EDT Blood Draw Laboratory Services, [facility] [place] [address] [facility] [address] [place] [address] Codi Mcdonald MD, MPH [address] [place] [phone] [email or web address] 04/09/2025 1:30 PM EDT Office Visit Center for Breast Oncology, Trisha Anshul [place] [facility], [facility] 450 [facility], [address] [address] Codi Mcdonald MD, MPH [address] [place] [phone] [email or web address] 04/09/2025 2:15 PM EDT Infusion Infusion Therapy Services [address] [place] [address] Codi Mcdonald MD, MPH [address] [place] [phone] [email or web address] documented as of this encounter Visit Diagnoses Not on filedocumented in this encounter Additional Health Concerns Infection Onset Date Last Indicated Resolved Time CoV-Exposed 06/17/2023 06/19/2023 06/27/2023 1:24 AM EDT documented as of this encounter Care Teams Owner/Photographer Relationship Specialty Start Date End Date Valerie Sharma MD [address] [place] [address] PCP - General Internal Medicine 05/30/18 Codi Mcdonald MD, MPH [address] [place] [phone] [email or web address] Medical Oncology 12/25/19 Nikhil Sandoval, JUNIOR SYSTEMS ANALYST [address] [place] [phone] [email or web address] 03/07/22 Brynn Cohn [address] [address] [email or web address] Manager 06/30/23 June Park MD [address] [place] [phone] [email or web address] Radiation Oncology 07/22/24 documented as of this encounter Additional Source Comments The information contained in this document represents components of the legal health record. It is not the complete legal health record.[facility]
--- OUTSIDE RECORDS SUMMARY | 2025-02-06 09:41 | XMS_ITS | Encounter Summary ---
Author Organization [facility] Address [address] [place] [address] Phone Care Team Providers Care French Binder Name Role Phone Valerie Sharma MD Primary Care Provider [phone] Codi Mcdonald MD, MPH Unavailable [phone] Nikhil Sandoval [facility] Unavailable [phone] Brynn Cohn [facility] Unavailable [phone] June Park MD Unavailable Encounter Details Date Type Department Care Team (Late st Contact Info) Description 03/07/2022 Procedure Pass [facility] [address] [place] [address] Social History Tobacco Use Types Packs/Day Years [...] 12:50 PM EDT Blood Draw Laboratory Services, [facility] [place] [address] [address] Codi Mcdonald MD, MPH [address] [place] [phone] [email or web address] 04/09/2025 1:30 PM EDT Office Visit Center for Breast [facility], Trisha [facility] [place] [facility], [facility] 450 [facility], [address] [address] Codi Mcdonald MD, MPH [address] [place] [phone] [email or web address] 04/09/2025 2:15 PM EDT Infusion Infusion Therapy Services [address] [place] [address] Codi Mcdonald MD, MPH [address] [place] [phone] [email or web address] documented as of this encounter Visit Diagnoses Not on filedocumented in this encounter Additional Health Concerns Infection Onset Date Last Indicated Resolved Time CoV-Exposed 06/17/2023 06/19/2023 06/27/2023 1:24 AM EDT documented as of this encounter Care Teams French Binder Relationship Specialty Start Date End Date Valerie Sharma MD [address] [place] [address] PCP - General Internal Medicine 05/30/18 Codi Mcdonald MD, MPH [address] [place] [phone] [email or web address] Medical Oncology 12/25/19 Nikhil Sandoval, LAND SURVEYOR [address] [place] [phone] [email or web address] Oncology 03/07/22 Brynn Cohn [address] [address] [email or web address] Motorcycle Repair Shop Supervisor 06/30/23 June Park MD [address] [place] [phone] [email or web address] Radiation Oncology 07/22/24 documented as of this encounter Additional Source Comments The information contained in this document represents components of the legal health record. It is not the complete legal health record.[facility]
--- OUTSIDE RECORDS SUMMARY | 2025-02-06 09:41 | XMS_ITS | Clinical Summary ---
Author Organization [facility] Address [address] [place] [address] Care Team Providers Care Shaker Operator Name Role Phone Valerie Sharma MD Primary Care Provider [phone] Allergies No known active allergies Medications Medication Sig Dispensed Refills Start Date End Date Status metoprolol succinate (TOPROL-XL) 24 hr tablet 100 mg Take 100 mg by mouth daily. 0 Active Atorvastatin Calcium (LIPITOR PO) Take 5 mg by mouth daily. 0 Active amLODIPine (NORVASC) tablet 5 mg Take 5 mg by mouth daily. 0 Active Active Problems No known active problems Family History Medical History Relation Name Comments Cancer Brother 1 lung cancer No Sig Med Hx Brother 2 No Sig Med Hx Brother 3 No Sig Med Hx Brother 4 Other Brother 5 accidental geat h at 12 years Other Father Accidental deat h Alzheimer's disease Mother Cancer Sister 1 Blood cancer Other Sister 2 working up for breast cancer No Sig Med Hx Sister 3 No Sig Med Hx Son 1 No Sig Med Hx Son 2 Relation Name Status Comments Brother 1 Alive Brother 2 Alive Brother 3 Alive Brother 4 Alive Brother 5 Father Mother Sister 1 Alive Sister 2 Alive Sister 3 Alive Son 1 Alive Son 2 Alive Social History Tobacco Use Types Packs/Day Years Used Date Smoking Tobacco: Former Cigarettes 0.5 7 Q uit: 05/21/1988 Smokeless Tobacco: Never Alcohol Use Standard Drinks/Week Comments Yes 0 (1 standard drink = 0.6 oz pur e alcohol) occasionally Sex and Gender Information Value Date Recorded Sex Assigned at Not on file Gender Identity Not on file Sexual Orientation Not on file Last Filed Vital Signs Vital Sign Reading Time Taken Comments Blood Pressure 137/77 05/21/2018 2:03 PM EDT Pulse 60 05/21/2018 2:03 PM EDT Temperature - - Respiratory Rate - - Oxygen Saturation - - Inhaled Oxygen Concentration - - Weight 104.1 kg (229 lb 6.4 oz) 05/21/2018 2:03 PM EDT Height 180.3 cm (5' 11 ) 05/21/2018 2:03 PM EDT Body Mass Index 31.99 05/21/2018 2:03 PM EDT Plan of Treatment Health Maintenance Due Date Last Done Comments Hepatitis C Screening 1959 COVID-19 Vaccine (#1) 1959 Depression Screening 1971 Preventative Health Evaluation 1977 DTap / Tdap / Td (1 - Tdap) 1978 Colon Cancer Screening (Colonoscopy) 2004 Shingrix-Zoster Vaccine (1 of 2) 2009 Fall Risk Assessment 2024 Pneumococcal Vaccine (1 of 1 - PCV) 2024 Influenza Vaccine (#1) 2024 RSV Adult > 60+ Yrs or Pregn ant (1 - 1-dose 75+ series) 2034 Hepatitis B Vaccines Aged Out No long er eligible based on patient's age to complete this topic Pneumococcal Vaccine Aged Out No long er eligible based on patient's age to complete this topic RSV Ped < 20 months Aged Out No longe r eligible based on patient's age to complete this topic Care Teams Shaker Operator Relationship Specialty Start Date End Date Valerie Sharma MD [address] [place] [address] PCP - General Oracle Adf Consultant 05/17/18
--- OUTSIDE RECORDS SUMMARY | 2025-02-06 09:41 | XMS_ITS | Encounter Summary ---
Author Organization [facility] Address [address] [place] [address] Phone Care Team Providers Care Manager Of Case Management Name Role Phone Valerie Sharma MD Primary Care Provider [phone] Codi Mcdonald MD, MPH Unavailable + [phone] Nikhil Sandoval [facility] Unavailable + [phone] [facility] Unavailable [phone] June Park MD Unavailable Encounter Details Date Type Department Care Team (Late st Contact Info) Description 06/17/2024 Procedure Pass [facility], Ct Scan - [address] [address] Social History Tobacco Use Types Packs/Day Years Used Date Smoking Tobacco: Former Cigarettes 0.5 7 1 981 - 10/30/1987 Smokeless Tobacco: Never Alcohol Use Standard Drinks/Week Comments Not Currently 0 (1 standard drink = 0.6 oz pur e alcohol) Education Answer Date Recorded Are you interested in more education? Not on fany e 02/24/2023 Are you concerned about learning? Not on file 02/24/2023 No 02/24/2023 No 02/24/2023 Digital Access Answer Date Recorded No 03/22/2023 No 03/22/2023 Reliable internet access at home? Not on file 03/22/2023 Device with a working camera? Not on file Sex and Gender Information Value Date Recorded Sex Assigned at Male 03/16/2023 8:51 AM EDT Gender Identity Male 03/16/2023 8:51 AM EDT Sexual Orientation Straight 11/01/2023 10 :13 AM EST documented as of this encounter Plan of Treatment Upcoming Encounters Date Type Department Care Team (Late st Contact Info) Description 04/09/2025 12:50 PM EDT Blood [facility], [facility] [address] [place] [address] Codi Mcdonald MD, MPH [address] [place] [address] [email or web address]@[facility] 04/09/2025 1:30 PM EDT Office Visit [facility], [facility] [place] [facility], [facility] [address] [place] [address] Codi Mcdonald MD, MPH [address] [place] [address] Veronica@[facility] 04/09/2025 2:15 PM EDT Infusion Infusion Therapy Services [address] [facility] [address] [address] [place] [address] Codi Mcdonald MD, MPH [address] [place] [address] Veronica@[facility] documented as of this encounter Visit Diagnoses Not on filedocumented in this encounter Additional Health Concerns Assessment Noted Time PHQ-2 Depression Total Score: 1 04/25/20 24 8:06 AM EDT documented as of this encounter Care Teams Manager Of Case Management Relationship Specialty Start Date End Date Valerie Sharma MD [address] [place] [address] PCP - General Internal Medicine 05/30/18 Codi Mcdonald MD, MPH [address] [place] [address] [email or web address] Medical Oncology 12/25/19 Nikhil Sandoval, JOSELITO [address] [place] [address] [email or web address] Oncology 03/07/22 Brynn Cohn, [address] [address] [email or web address] Grocery Stocker 06/30/23 June Park MD [address] [place] [address] [email or web address] Radiation Oncology 07/22/24 documented as of this encounter Additional Source Comments The information contained in this document represents components of the legal health record. It is not the complete legal health record.[facility]
--- OUTSIDE RECORDS SUMMARY | 2025-02-06 09:41 | XMS_ITS | Encounter Summary ---
Author Organization [facility] Address [address] [place] [address] Phone Care Team Providers Care Correctional Guard Name Role Phone Valerie Sharma MD Primary Care Provider [phone] Codi Mcdonald MD, MPH Unavailable [phone] Nikhil Sandoval [facility] Unavailable + [phone] Brynn Cohn [facility] Unavailable [phone] June Park MD Unavailable Encounter Details Date Type Department Care Team (Late st Contact Info) Description 04/19/2023 Procedure Pass [facility] Cross Sectional Interventional Radiology [address] [place] [address] Social History Tobacco Use Types Packs/Day Years [...] 12:50 PM EDT Blood Draw Laboratory Services, [facility] [address] [place] [address] Codi Mcdonald MD, MPH [address] [place] [address] Veronica@[email or web address] 04/09/2025 1:30 PM EDT Office Visit Center for Breast Oncology, [facility] [place] [facility], [facility] [address] [place] [address] Codi Mcdonald MD, MPH [address] [place] [address] Veronica@[facility] 04/09/2025 2:15 PM EDT Infusion Infusion Therapy Services [address], [facility] [address] [place] [address] Codi Mcdonald MD, MPH [address] [place] [address] Veronica@[facility] documented as of this encounter Visit Diagnoses Not on filedocumented in this encounter Additional Health Concerns Infection Onset Date Last Indicated Resolved Time CoV-Exposed 06/17/2023 06/19/2023 06/27/2023 1:24 AM EDT documented as of this encounter Care Teams Correctional Guard Relationship Specialty Start Date End Date Valerie Sharma MD [address] [place] [address] PCP - General Internal Medicine 05/30/18 Codi Mcdonald MD, MPH [address] [place] [address] Veronica@[email or web address] Medical Oncology 12/25/19 Nikhil Sandoval, JOSELITO [address] [place] [address] [email or web address] Oncology 03/07/22 Brynn Cohn, [address] [address] [email or web address] Project Manager/Team Coach 06/30/23 June Park MD [address] [place] [address] [email or web address] Radiation Oncology 07/22/24 documented as of this encounter Additional Source Comments The information contained in this document represents components of the legal health record. It is not the complete legal health record.[facility]
--- OUTSIDE RECORDS SUMMARY | 2025-02-06 09:41 | XMS_ITS | Encounter Summary ---
Author Organization [facility] Address [address] [facility] [address] [place] [address] Phone Care Team Providers Care Cabana Attendant Name Role Phone Valerie Sharma MD Primary Care Provider [phone] Codi Mcdonald MD, MPH Unavailable [phone] Nikhil Sandoval [facility] Unavailable + [phone] Brynn Cohn [facility] Unavailable [phone] June Park MD Unavailable Encounter Details Date Type Department Care Team (Late st Contact Info) Description 04/07/2023 Procedure Pass [facility] Imaging Department, [facility] Cancer [place], [place] [address] [facility] [address] [place] [address] Social History Tobacco Use Types Packs/Day Years [...] 12:50 PM EDT Blood Draw Laboratory Services, [facility] [address] [place] [address] Codi Mcdonald MD, MPH [address] [place] [address] Veronica@[facility] 04/09/2025 1:30 PM EDT Office Visit Center for Breast Oncology, [facility] [place] [facility], [facility] [address] [place] [address] Codi Mcdonald MD, MPH [address] [place] [address] Veronica@[facility] 04/09/2025 2:15 PM EDT Infusion Infusion Therapy Services [address] [place] [address] Codi Mcdonald MD, MPH [address] [place] [phone] Veronica@[facility] documented as of this encounter Visit Diagnoses Not on filedocumented in this encounter Additional Health Concerns Infection Onset Date Last Indicated Resolved Time CoV-Exposed 06/17/2023 06/19/2023 06/27/2023 1:24 AM EDT documented as of this encounter Care Teams Cabana Attendant Relationship Specialty Start Date End Date Valerie Sharma [place] [address] PCP - General Internal Medicine 8/1/18 Codi Mcdonald MD, MPH [address] [place] [address] Veronica@[email or web address] Medical Oncology 12/25/19 Nikhil Sandoval, JOSELITO [address] [place] [address] [email or web address]@[email or web address] Oncology 03/07/22 Brynn Cohn, [address] [address] [email or web address] Pig Casting Machine Operator 06/30/23 June Park MD [address] [place] [address] [email or web address] Radiation Oncology 07/22/24 documented as of this encounter Additional Source Comments The information contained in this document represents components of the legal health record. It is not the complete legal health record.[facility]
--- OUTSIDE RECORDS SUMMARY | 2025-02-06 09:41 | XMS_ITS | Encounter Summary ---
Author Organization [facility] Address [address] [facility] [address] [place] [address] Phone Care Team Providers Care Newspaper Managing Editor Name Role Phone Valerie Sharma MD Primary Care Provider [phone] Codi Mcdonald MD, MPH Unavailable [phone] Nikhil Sandoval [facility] Unavailable + [phone] [facility] Unavailable [phone] June Park MD Unavailable Encounter Details Date Type Department Care Team (Late st Contact Info) Description 04/07/2023 Procedure Pass [facility]indi [facility]ank Imaging Department, [facility] Cancer [place], [place] [address] [facility], [address] [place] [address] Social History Tobacco Use Types Packs/Day Years [...] 12:50 PM EDT Blood Draw Laboratory Services, [facility] [address] [place] [address] Codi Mcdonald MD, MPH [address] [place] [address] Veronica@[email or web address] 04/09/2025 1:30 PM EDT Office Visit Center for Breast Oncology, [facility], [facility] [address] [place] [address] Codi Mcdonald MD, MPH [address] [place] [address] Veronica@[facility] 04/09/2025 2:15 PM EDT Infusion Infusion Therapy Services [address] [place] [address] Codi Mcdonald MD, MPH [address] [place] [address] Veronica@[facility] documented as of this encounter Visit Diagnoses Not on filedocumented in this encounter Additional Health Concerns Infection Onset Date Last Indicated Resolved Time CoV-Exposed 06/17/2023 06/19/2023 06/27/2023 1:24 AM EDT documented as of this encounter Care Teams Newspaper Managing Editor Relationship Specialty Start Date End Date Valerie Sharma MD [facility] [place] [address] PCP - General Internal Medicine 8/1/18 Codi Mcdonald MD, MPH [address] [place] [address] Veronica@[email or web address] Medical Oncology 12/25/19 Nikhil Sandoval, JOSELITO [address] [place] [address] Pablo@[facility] Oncology 03/07/22 Brynn Cohn, [address] [address] [email or web address] Panel Instrument Repairer 06/30/23 June Park MD [address] [place] [phone] [email or web address] Radiation Oncology 07/22/24 documented as of this encounter Additional Source Comments The information contained in this document represents components of the legal health record. It is not the complete legal health record.[facility]
--- OUTSIDE RECORDS SUMMARY | 2025-02-06 09:41 | XMS_ITS | Encounter Summary ---
Author Organization [facility] Address [address] [place] [address] Phone Care Team Providers Care Automobile And Property Underwriter Name Role Phone Valerie Sharma MD Primary Care Provider [phone] Codi Mcdonald MD, MPH Unavailable [phone] Nikhil Sandoval [facility] Unavailable + [phone] Brynn Cohn [facility] Unavailable [phone] June Park MD Unavailable Encounter Details Date Type Department Care Team (Late st Contact Info) Description 07/11/2024 Procedure Pass [facility] Periop 1st floor [address] [place] [address] Social History Tobacco Use Types Packs/Day Years [...] with a working camera? Not on file Intimate Partner Violence Answer Date R ecorded Are you denied basic needs s uch as food, clothing, or medical care? No 07/11/2024 In the past 12 months have y ou been in a relationship with a person who hurts, threatens, or tries to control you? No 07/11/2024 Are you denied basic needs s uch as food, clothing, or medical care? No 07/11/2024 In the past 12 months have y ou been in a relationship with a person who hurts, threatens, or tries to control you? No 07/11/2024 Sex and Gender Information Value Date Recorded Sex Assigned at Male 03/16/2023 8:51 AM EDT Gender Identity Male 03/16/2023 8:51 AM EDT Sexual Orientation Straight 11/01/2023 10 :13 AM EST documented as of this encounter Plan of Treatment Upcoming Encounters Date Type Department Care Team (Late st Contact Info) Description 04/09/2025 12:50 PM EDT Blood Draw Laboratory Services, [facility] [address] [place] [address] [employer] [facility] 2 [place] [address] Codi Mcdonald MD, MPH [address] [place] [address] Veronica@[email or web address] 04/09/2025 1:30 PM EDT Office Visit Center for Breast Oncology, Trisha [facility]ravo [place] [facility], [facility] [address] [place] [address] [employer] [facility], [address] [place] [address] Codi Mcdonald MD, MPH [address] [place] [address] Veronica@[email or web address] 04/09/2025 2:15 PM EDT Infusion Infusion Therapy Services [place] [address], [facility] [address] [place] [employer] [facility] 9 [place] [address] Codi Mcdonald MD, MPH [address] [place] [address] Veronica@[email or web address] documented as of this encounter Visit Diagnoses Not on filedocumented in this encounter Additional Health Concerns Assessment Noted Time PHQ-2 Depression Total Score: 1 04/25/20 24 8:06 AM EDT documented as of this encounter Care Teams Automobile And Property Underwriter Relationship Specialty Start Date End Date Valerie Sharma MD [address] [place] [address] PCP - General Internal Medicine 05/30/18 Codi Mcdonald MD, MPH [address] [place] [address] [email or web address] Medical Oncology 12/25/19 Nikhil Sandoval, FASHION SUPERVISOR [address] [place] [phone] [email or web address] Oncology 03/07/22 Brynn Cohn, [address] [address] [email or web address] Field Technical Specialist 06/30/23 June Park MD [address] [place] [address] [email or web address] Radiation Oncology 07/22/24 documented as of this encounter Additional Source Comments The information contained in this document represents components of the legal health record. It is not the complete legal health record.[facility]
--- OUTSIDE RECORDS SUMMARY | 2025-02-06 09:42 | XMS_ITS | Referral Summary ---
Author Organization [facility] Address [address] [place] [address] Care Team Providers Care Application Integration Architect Name Role Phone ZacharyValerie Primary Care Provider [phone] Encounters Date Type Department Care Team Description 11/11/2024 2:43 PM EST - 11/11/2024 11:59 PM [facility] Hospital Encounter [facility] Rad Onc [address] [place] [address] Discharge Disposition: Home or Self Care () 11/11/2024 9:20 AM EST - 11/11/2024 2:42 PM [facility] Hospital Encounter [facility] Rad Onc [address] [place] [address] Mani Feliciano MD Discharge Disposition: Home or Self Care () from Last 3 Months Allergies No known active allergies Medications tamoxifen (NOLVADEX) 20 mg tablet 01/26/2022 Active sildenafiL (VIAGRA) 100 mg tablet Take 100 mg by mouth daily as needed. 11/01/2021 Active atorvastatin calcium (LIPITOR ORAL) Take 10 mg by mouth daily. Active metoprolol succinate XL (TOPROL XL) 100 mg tablet 11/03/2021 Active famotidine (PEPCID) 40 mg tablet Take 20 mg by mouth 2 times daily. 10/23/2024 Active furosemide (LASIX) 20 mg tablet Take 20 mg by mouth once a day. Active letrozole (FEMARA) 2.5 mg tablet Take 2.5 mg by mouth daily. 07/03/2024 Active leuprolide (LUPRON DEPOT 3 MONTH) 11.25 mg IM injection Inject 11.25 mg into the shoulder, thigh, or buttocks muscle as directed every 3 months. Active apixaban (ELIQUIS) 2.5 mg tablet Take 5 mg by mouth every 12 hours. Active amLODIPine (NORVASC) 5 mg tablet Take 5 mg by mouth once a day. Active cetirizine (ZyrTEC) 10 mg tablet Take 5 mg by mouth once a day. Active abemaciclib (VERZENIO) tablet 150 mg Take 150 mg by mouth 2 times a day. Active Social History Tobacco Use Types Packs/Day Years Used Date Smoking Tobacco: Never Assessed Sex and Gender Information Value Date Recorded Sex Assigned at Male 08/15/2024 3:59 PM EDT Legal Sex Male 12:04 AM EDT Gender Identity Male 08/15/2024 3:59 PM EDT Sexual Orientation Choose not to disclose 2023 3:59 PM EDT Last Filed Vital Signs Vital Sign Reading Time Taken Comments Blood Pressure 122/73 11/11/2024 10:48 AM EST Pulse 88 11/11/2024 10:48 AM EST Temperature 36.2 ??C (97.2 ??F) 11/11/2024 1 0:48 AM EST Respiratory Rate 16 10/07/2024 9:34 AM EST Oxygen Saturation 96% 11/11/2024 10: 48 AM EST Inhaled Oxygen Concentration - - Weight 110.8 kg (244 lb 3.2 oz) 025 10:48 AM EST Height - - Body Mass Index - - Plan of Treatment Upcoming Encounters Date Type Department Care Team (Late st Contact Info) Description 05/12/2025 9:30 AM EDT Appointment [facility] Rad Onc [address] [place] [address] Mani Feliciano MD [address] [place] [address] Insurance BCBS MCR REPLACE PPO Care Teams Application Integration Architect Relationship Specialty Start Date End Date Valerie Sharma [address] [place] [address] PCP - General Internal Medicine 03/02/22
--- OUTSIDE RECORDS SUMMARY | 2025-02-06 09:42 | XMS_ITS | Clinical Summary ---
Author Organization [facility] Address [address] [place] [address] Care Team Providers Care Stadium Manager Name Role Phone Valerie Sharma Primary Care Provider [phone] Allergies No known active allergies Medications tamoxifen [...] by mouth 2 times a day. Active Encounters Date Type Department Care Team Description 11/11/2024 2:43 PM EST - 11/11/2024 11:59 PM EST Hospital Encounter [facility] Rad Onc [address] [place] [address] Discharge Disposition: Home or Self Care (01) 11/11/2024 9:20 AM EST - 11/11/2024 2:42 PM EST Hospital Encounter [facility] Rad Onc [address] [place] [address] Mani Feliciano MD Discharge Disposition: Home or Self Care () from Last 3 Months Social History Tobacco Use Types Packs/Day Years [...] Info) Description 05/12/2025 9:30 AM EDT Appointment [facility] Rad Onc [address] [place] [address] Mani Feliciano MD [address] [place] [address] Health Maintenance Due Date Last Done Comments Cologuard 1959 Colon Cancer Screening 1959 Colonoscopy 1959 FOBT / Fit Test 1959 HIV Screening 1959 Hepatitis C Screening 1959 Sigmoidoscopy 1959 Pneumococcal Vaccine: 50+ Years (1 of 2 - PCV) 1978 Zoster Vaccines (1 of 2) 1978 RSV Vaccine (60+ years old a nd patients) (1 - Risk 60-74 years 1-dose series) 2019 COVID-19 Vaccine (4 - 2023-2 5 season) 2024 01/14/2022, 03/20/2021, 02/20/2021 Alcohol/Substance Use Screening 10/30/2024 Depression Screening and Follow-Up 10/30/2024 08/19/2024 Health Care Proxy Review 10/30/2024 Social Drivers of Health Annual Screening 10/30/2024 Influenza Vaccine (Season Ended) 2025 DTaP,Tdap,and Td Vaccines (2 - Td or Tdap) 09/01/2028 09/01/2018 Hepatitis B Vaccines Aged Out No long er eligible based on patient's age to complete this topic Insurance BCBS MCR REPLACE PPO Care Teams Stadium Manager Relationship Specialty Start Date End Date Valerie Sharma [address] [place] [address] PCP - General Internal Medicine 03/02/22
--- OUTSIDE RECORDS SUMMARY | 2025-02-06 09:42 | XMS_ITS | Data Portability ---
Author Organization [place] - [facility], Allergy Address [address] [place] [id number] Care Team Providers Care Restaurant Culinary Manager Name Role Phone JOSÉ OLMEDO Primary Care Provider [phone] Assessment Encounter Date Assessment Date Assessment LastModified by Organization Details LastModified Time 06/27/2024 06/27/2024 64 year old male with left submandibular sialoadenitis which has resolved. FOL did not reveal persistent pharyngeal or epiglottic edema. Encouraged adequate hydration, massage, warm compresses and sour candies to help prevent recurrence. He is cleared from ENT standpoint to have the cardioversion. He will follow up on an as needed basis. Patient was seen and evaluated by Dr. Tirado today. [email or web address] Not available 07/10/2024 06:06:39 Plan of Treatment Reminders Order Date Submit Date Provider Last Modified By Organization Details Last Modified Time Details Appointments None record ed. Lab None record ed. Referral None record ed. Procedures None record ed. Surgeries None record ed. Imaging None record ed. Medication Orders None record ed. Patient TargetsNo targets recorded. Patient InstructionsNo instructions recorded. Reason for Referral None Reported. Results Created Date Observation Date Name Description Value Unit Range Abnormal Flag Note LastModifiedBy Organization Detail LastModifiedTime 07/12/20 24 06/17/2024 CT, neck, soft tissu e, w/ contr ast No observ ation record ed. [email or web address] Not Available 2023 14:33:14 Result Notes None recorded. Problems Name Problem SNOMED Code Status Onset Date Resolution Date Notes Provider Name and Address Organization Details Recorded Time Sialoadenitis of the submandibular gland 017175804 Active 2023 SB RONQUILLO PA-C [address] [facility] [address], [place], [address], [facility] - [facility] 12:49:52 Problem Notes None recorded. Procedures Surgical History Date Name Laterality Status Provider Name and Address Organization Details Recorded Time 06/27/20 Fiberoptic Laryngoscopy (Comprehensive) completed SB RONQUILLO PA-C [address] [place] [address],[place] [address], [place], [address], [place] - [facility] 06/27/2024 12:51:19 Imaging Results Imaging Date Name Status LastModified by Organiz ation Details LastModified Time 06/17/2024 CT, neck, soft tissue, w/ contrast completed [email or web address] Information not available 07/12/2024 14:33:14 Procedure Notes None recorded. Medical Equipment None Reported. Medications Name Sig Start Date Stop Date Status Note LastModified by Organization Details LastModified Time clindamycin HCl 300 mg capsule TAKE 1 CAPSULE BY MOUTH THREE TIMES A DAY FOR 10 DAYS active Not Available Not Available Not Available atorvastatin 10 mg tablet TAKE 1/2 TABLET BY MOUTH EVERY DAY AT BEDTIME active Not Available Not Available No t Available famotidine 40 mg tablet active Not Available Not Available Not Available metoprolol succinate ER 100 mg tablet,exten ded release 24 hr TAKE 1 TABLET BY MOUTH TWICE A DAY active Not Available Not Available No t Available lorazepam 0.5 mg tablet TAKE 1 TABLET BY MOUTH EVERY 6 HOURS NEEDED FOR ANXIETY. active Not Available Not Available No t Available clindamycin 1 % topical gel APPLY TO AFFECTED AREA TWICE A DAY active Not Available Not Available No t Available furosemide 20 mg tablet TAKE 1 TABLET BY MOUTH EVERY DAY DIRECTED active Not Available Not Available No t Available letrozole 2.5 mg tablet TAKE 1 TABLET BY MOUTH DAILY. FOLLOW INSTRUCTION S GIVEN BY PROVIDER. active Not Available Not Available No t Available ipratropium bromide 21 mcg (0.03 %) nasal spray INHALE 2 SPRAYS BY [address]AL ROUTE TWO TIMES A DAY active Not Available Not Available No t Available amoxicillin 875 mg-potassium clavulanate 125 mg tablet TAKE 1 TABLET BY MOUTH TWICE A DAY FOR 21 DAYS active Not Available Not Available No t Available amoxicillin 500 mg-potassium clavulanate 125 mg tablet TAKE 1 TABLET BY MOUTH EVERY 12 HOURS FOR 10 DAYS active Not Available Not Available Not Available Verzenio 150 mg tablet active Not Available Not Available No t Available Vitals Date Recorded Body height Body mass index (BMI) Body weight Provider Name and Address Organization Details Last Updated DateTime 06/27/2024 180.34 cm 32.4 kg/m2 132393.43 g Andra Bledsoe [place] - [facility] 06/27/2024 10:12:57 Social History None recorded. Functional Status None recorded. Mental Status None recorded. Family History Nothing Reported. Medical History No medical history recorded. Past Encounters Encounter ID Performer Location Encounter Start Date Encounter Closed Date Diagnosis/Indication Diagnosis SNOMED-CT Code Diagnosis ICD10 Code Diagnosis Note [id number] SATURNINO TIRADO MD [facility] on [address] [place] [address] 06/27/2024 09:24:35 06/27/2024 10:58:43 Sialoadenitis of the submandibular gland 045110949 K11.20 Health Concerns Section Related Observation LastModified by Organization Detai ls LastModified Time None Recorded Concern Status LastModified by Organization Details LastModified Time None Recorded Advance Directives Directive None Recorded Payers Encounter Date Sequence Insurance Name Policy Number Policy Khan Covered Member ID Khan Member ID Guarantor Name 06/27/2024 1 [employer]: MEDICARE PPO BLUE (MEDICARE REPLACEMENT PPO) [id number] Geo Garza [id number] Geo Garza Notes Date Note Type Note Provider Name and Address Organization Details Recorded Time 06/27/2024 text/html 64 year old male new patient who presents for follow up of his left submandibular swelling which started on 06/16/24. He had associated left ear pain. He was seen in the [facility] emergency room on 06/17/24 and was prescribed a ten day course of clindamycin which he has completed. He states that the swelling has resolved.e He had CT neck soft tissue with contrast while at [facility] ER that showed edema of the left parapharyngeal and left oropharyngeal area involving the left aspect of the epiglottis. There was left submandibular gland swelling without ductal dilation or stone. He has a past medical history significant for left breast cancer in 2018. He recently had left arm lymphedema and a lymph node was positive for cancer. He has been scheduled to have this excised surgically but also recently developed atrial fibrillation. He was scheduled for cardioversion and then developed the submandibular swelling. He notes that he drinks a lot of water but recently was prescribed Lasix. He quit smoking 40 years ago. SATURNINO TIRADO MD [address] [place] [address], [place], [address], [facility] - [facility] 07/10/2024 06:06:49
--- OUTSIDE RECORDS SUMMARY | 2025-02-06 09:42 | XMS_ITS | Encounter Summary ---
Author Organization [facility] Address [address] [facility] [address] [place] [address] Phone Care Team Providers Care Real Estate Office Manager Name Role Phone Valerie Sharma MD Primary Care Provider [phone] Codi Mcdonald MD, MPH Unavailable [phone] Nikhil Sandoval [facility] Unavailable + [phone] Brynn Cohn [facility] Unavailable [phone] June Park MD Unavailable Encounter Details Date Type Department Care Team (Late st Contact Info) Description 04/26/2024 Procedure Pass [facility] EKG [address] [place] [address] Social History Tobacco Use Types Packs/Day Years [...] 12:50 PM EDT Blood Draw Laboratory Services, [facility] [address] [place] [address] Codi Mcdonald MD, MPH [address] [place] [phone] [email or web address] 04/09/2025 1:30 PM EDT Office Visit [facility], [facility], [facility] [address] [place] [address] Codi Mcdonald MD, MPH [address] [place] [phone] [email or web address] 04/09/2025 2:15 PM EDT Infusion Infusion Therapy Services [address] [place] [address] Codi Mcdonald MD, MPH [address] [place] [phone] [email or web address] documented as of this encounter Visit Diagnoses Not on filedocumented in this encounter Additional Health Concerns Assessment Noted Time PHQ-2 Depression Total Score: 1 04/25/20 24 8:06 AM EDT documented as of this encounter Care Teams Real Estate Office Manager Relationship Specialty Start Date End Date Valerie Sharma MD [address] [place] [address] PCP - General Internal Medicine 05/30/18 Codi Mcdonald MD, MPH [address] [place] [phone] [email or web address] Medical Oncology 12/25/19 Nikhil Sandoval CNP [address] [place] [address] [email or web address] Oncology 03/07/22 Brynn Cohn, [address] [address] [email or web address] Italian Tutor 06/30/23 June Park MD [address] [place] [phone] [email or web address] Radiation Oncology 07/22/24 documented as of this encounter Additional Source Comments The information contained in this document represents components of the legal health record. It is not the complete legal health record.[facility]
--- OUTSIDE RECORDS SUMMARY | 2025-02-06 09:42 | XMS_ITS | Encounter Summary ---
Author Organization [facility] Address [address] [facility] [address] [place] [address] Phone Care Team Providers Care Investigator Fraud Name Role Phone Valerie Sharma MD Primary Care Provider [phone] Codi Mcdonald MD, MPH Unavailable + [phone] Nikhil Sandoval BUSINESS OFFICE REPRESENTATIVE Unavailable + [phone] Brynn Cohn [facility] Unavailable [phone] June Park MD Unavailable Reason for Referral * Outpatient Procedure - Closed Specialty Diagnoses / Procedures Referred By Zainab salas Referred To Contact Radiology Diagnoses 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, estrogen receptor positive Procedures [facility] Breast Biopsy of Axilla (Left) [place] BX BREAST W DEVICE 1ST LESION ULTRASOUND GUIDE [place] BX BREAST W DEVICE ADDL LESION ULTRASOUND GUIDE Nikhil Sandoval, [address] [address] Email: [email or web address] Referral ID Status Reason Start Date Expiration Date Visits Re quested Visits Authorized [id number] Closed 04/04/2023 04/03/2024 1 1 Encounter Details Date Type Department Care Team (Late st Contact Info) Description 03/21/2023 Ancillary Orders [facility], Mammography, Sindi [facility]ank Imaging Department [address] [place] [phone] Nikhil Sandoval, BUSINESS OFFICE REPRESENTATIVE [address] [place] [address] [email or web address]. [facility] 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, estrogen receptor positive Social History Tobacco Use Types Packs/Day Years [...] 12:50 PM EDT Blood Draw Laboratory Services, [facility] [address] [facility] [address] [place], [place] Codi Mcdonald MD, MPH [address] [place] [address] [email or web address]. [facility] 04/09/2025 1:30 PM EDT Office Visit [facility], [facility], [facility] [address] [facility] [place] [address] Codi Mcdonald MD, MPH [address] [place] [address] Veronica@[email or web address]. [facility] 04/09/2025 2:15 PM EDT Infusion Infusion Therapy Services [place], [facility] [address] [facility] [address] [place] [address] Codi Mcdonald MD, MPH [address] [place] [address] [email or web address] documented as of this encounter Results * [facility] Breast Biopsy of Axilla (Left) (04/04/2023 8:19 AM EDT) Anatomical Region Laterality Modality Breast Left, Breast Bilateral Ul trasound 04/04/2023 9:19 AM EDT Addenda Addendum by Dejah Mark MD on 04/10/2023 9:51 AM EDT ADDENDUM: Core biopsy of LEFT AXILLA, 15 CM FROM CENTER, 14G ULTRASOUND-GUIDED CORE NEEDLE BIOPSY FOR A 2.9 CM MASS WITH IRREGULAR MARGINS: Pathology findings: ?? INVASIVE CARCINOMA, consistent with breast origin, involving fibroadipose tissue, up to 1.3 cm. Immunoperoxidase studies were performed on formalin fixed tissue with the following results for carcinoma (block A1): ? ESTROGEN RECEPTOR ?POSITIVE (>95%, strong) ? PROGESTERONE RECEPTOR ?NEGATIVE (0%) ? HER2/MIKO ? NEGATIVE (1+) This result is: ??Malignant and concordant. Recommendation: ??Recommend appropriate clinical referral. Overall recommendation: ?? Appropriate clinical and surgical referral. Communication of results: ??The patient has already been informed of the results by his oncology team. Impressions 04/04/2023 9:22 AM EDT Ultrasound-guided core needle biopsy of the left axilla - please see report content for details. An addendum to this report will be dictated when pathology results are available. Narrative 04/04/2023 9:22 AM EDT BI [facility] BREAST BIOPSY OF AXILLA (LEFT) Additional patient information: Left axillary mass. History of left mastectomy for breast cancer. COMPARISON: Comparison is made with relevant prior imaging. TECHNIQUE: The procedure was explained to the patient, including discussion of risks and benefits, and written informed consent was obtained. ??A preprocedural timeout was performed to confirm patient identity with multiple identifiers, as well as the side of the procedure to be performed. Ultrasound imaging was performed to localize the target. The procedure site was prepped using standard aseptic technique. Local anesthesia was administered and documented in the EMR. Under ultrasound guidance, core biopsy was performed of the target lesion. FINDINGS: SITE #1 Location: Left axilla at approximately 15 cm from the center Target: 29 mm mass Device: 14-gauge core biopsy needle Clip: A ribbon shape clip was placed at the procedure site. Post procedure mammogram: Not performed due to lesion location. Specimen: Multiple cores obtained. Submitted in formalin to pathology. The patient tolerated the procedure and there were no immediate complications. Procedure Note Dejah Mark MD - 04/04/2023 BI [facility] BREAST BIOPSY OF AXILLA (LEFT) Additional patient information: Left axillary mass. History of leftmastectomy for breast cancer. COMPARISON: Comparison is made with relevant prior imaging. TECHNIQUE: The procedure was explained to the patient, including discussion of risksand benefits, and written informed consent was obtained. A preproceduraltimeout was performed to confirm patient identity with multipleidentifiers, as well as the side of the procedure to be performed. Ultrasound imaging was performed to localize the target. The proceduresite was prepped using standard aseptic technique. Local anesthesia wasadministered and documented in the EMR. Under ultrasound guidance, corebiopsy was performed of the target lesion. FINDINGS: SITE #1 Location: Left axilla at approximately 15 cm from the center Target: 29 mm mass Device: 14-gauge core biopsy needle Clip: A ribbon shape clip was placed at the procedure site. Post procedure mammogram: Not performed due to lesion location. Specimen: Multiple cores obtained. Submitted in formalin to pathology. The patient tolerated the procedure and there were no immediatecomplications. IMPRESSION: Ultrasound-guided core needle biopsy of the left axilla - please seereport content for details. An addendum to this report will be dictated when pathology results areavailable. Codi Mcdonald MD, MPH IMG BI IRP MARISOL DED BREAST PROC documented in this encounter Visit Diagnoses Diagnosis 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, estrogen receptor positive 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, estrogen receptor positive documented in this encounter Additional Health Concerns Infection Onset Date Last Indicated Resolved Time CoV-Exposed 06/17/2023 06/19/2023 06/27/2023 1:24 AM EDT documented as of this encounter Care Teams Investigator Fraud Relationship Specialty Start Date End Date Valerie Sharma MD [facility] [place] [address] PCP - General Internal Medicine 05/30/18 Codi Mcdonald MD, MPH [address] [place] [phone] [email or web address] Medical Oncology 12/25/19 Nikhil Sandoval, JOSELITO [address] [place] [phone] [email or web address] Oncology 03/07/22 Brynn Cohn, [address] [address] [email or web address] Health And Safety Coordinator 06/30/23 June Park MD [address] [place] [phone] [email or web address] Radiation Oncology 07/22/24 documented as of this encounter Additional Source Comments The information contained in this document represents components of the legal health record. It is not the complete legal health record.[facility]
--- OUTSIDE RECORDS SUMMARY | 2025-02-06 09:42 | XMS_ITS | Encounter Summary ---
Author Organization [facility] Address [address] [email or web address] [facility] [address] [place] [address] Phone Care Team Providers Care Coagulation Operator Name Role Phone Valerie Sharma MD Primary Care Provider [phone] Codi Mcdonald MD, MPH Unavailable [phone] Nikhil Sandoval [facility] Unavailable + [phone] Brynn Cohn [facility] Unavailable [phone] June Park MD Unavailable Encounter Details Date Type Department Care Team (Late st Contact Info) Description 07/22/2020 Ancillary Orders Center for Breast [facility], [facility] [place] [facility], [facility] [place] [address] [place] [place], [place] [phone] Codi Mcdonald MD, MPH [address] [place] [address] [email or web address] History of left breast cancer Social History Tobacco Use Types Packs/Day Years Used Date Smoking Tobacco: Former Cigarettes Q uit: 1987 Smokeless Tobacco: Never Alcohol Use Standard Drinks/Week [...] 12:50 PM EDT Blood Draw Laboratory Services, [facility] [address] [place] [address] Codi Mcdonald MD, MPH [address] [place] [address] [email or web address] 04/09/2025 1:30 PM EDT Office Visit [facility], [facility] [place] [facility], [facility] [address] [employer] [address] [place] [address] Codi Mcdonald MD, MPH [address] [place] [address] [email or web address] 04/09/2025 2:15 PM EDT Infusion Infusion Therapy Services [address], [facility] [address] [place] [address] Codi Mcdonald MD, MPH [address] [place] [phone] [email or web address] documented as of this encounter Results * BI MAMMOGRAM SCREENING WITH TOMOSYNTHESIS WITH CAD (RIGHT) (07/22/2020 8:22 AM EDT) Anatomical Region Laterality Modality Breast Right, Breast Bilateral Right M ammography Other 07/22/2020 8:26 AM EDT Impressions 07/22/2020 8:28 AM EDT No mammographic evidence of malignancy. Recommend routine screening. The patient was sent a letter with the results of the exam and follow-up recommendation. OVERALL ASSESSMENT -- BI-RADS 1 ??NEGATIVE ?? Narrative 07/22/2020 8:28 AM EDT Reason for exam: ?? Screening. Prior left mastectomy for breast cancer. No new breast complaints. TECHNIQUE: Digital Mammography and tomosynthesis were used to obtain images. Computer Aided Detection was used to aid in interpretation and volumetric breast density assessment may have been used as an aid in evaluating breast density. COMPARISON: Comparison is made with relevant prior imaging in PACS. Breast Composition: ??almost entirely fatty. FINDINGS: Right Breast: No significant masses, suspicious calcifications, or other abnormalities are seen. Mild gynecomastia is unchanged. Procedure Note Germán De Leon MD - 07/22/2020 Reason for exam: Screening. Prior left mastectomy for breast cancer. No new breastcomplaints. TECHNIQUE: Digital Mammography and tomosynthesis were used to obtain images. ComputerAided Detection was used to aid in interpretation and volumetric breastdensity assessment may have been used as an aid in evaluating breastdensity. COMPARISON: Comparison is made with relevant prior imaging in PACS. Breast Composition: almost entirely fatty. FINDINGS: Right Breast: No significant masses, suspicious calcifications, or other abnormalitiesare seen. Mild gynecomastia is unchanged. IMPRESSION: No mammographic evidence of malignancy. Recommend routine screening. The patient was sent a letter with the results of the exam and follow-uprecommendation. OVERALL ASSESSMENT -- BI-RADS 1 NEGATIVE Codi Mcdonald MD, MPH IMG MG EXAMS documented in this encounter Visit Diagnoses Diagnosis History of left breast cancer History of left breast cancer documented in this encounter Additional Health Concerns Infection Onset Date Last Indicated Resolved Time CoV-Exposed 06/17/2023 06/19/2023 06/27/2023 1:24 AM EDT documented as of this encounter Care Teams Coagulation Operator Relationship Specialty Start Date End Date Valerie Sharma MD [address] [place] [address] PCP - General Internal Medicine 05/30/18 Codi Mcdonald MD, MPH [address] [place] [phone] [email or web address] Medical Oncology 12/25/19 Nikhil Sandoval CNP [address] [place] [address] [email or web address] Oncology 03/07/22 Brynn Cohn, [address] [address] [email or web address] Woodenware Assembler 06/30/23 June Park MD [address] [place] [address] [email or web address] Radiation Oncology 07/22/24 documented as of this encounter Additional Source Comments The information contained in this document represents components of the legal health record. It is not the complete legal health record.[facility]
--- OUTSIDE RECORDS SUMMARY | 2025-02-06 09:42 | XMS_ITS | Encounter Summary ---
Author Organization [facility] Address [address] [facility] [address] [place] [phone] Phone Care Team Providers Care Community Action Worker Name Role Phone Valerie Sharma MD Primary Care Provider [phone] Codi Mcdonald MD, MPH Unavailable [phone] Nikhil Sandoavl [facility] Unavailable + [phone] Brynn Cohn [facility] Unavailable [phone] June Park MD Unavailable Encounter Details Date Type Department Care Team (Late st Contact Info) Description 04/26/2024 Procedure Pass [facility] [address] [place] [address] Social History Tobacco Use Types Packs/Day Years [...] 12:50 PM EDT Blood Draw Laboratory Services, [facility] [address] [place] [address] Codi Mcdonald MD, MPH [address] [place] [phone] [email or web address] 04/09/2025 1:30 PM EDT Office Visit [facility], Trisha Bravo [facility], [facility] [address] [place] [address] Codi Mcdonald MD, MPH [address] [place] [phone] [email or web address] 04/09/2025 2:15 PM EDT Infusion [facility] Services [address] [place] [address] Codi Mcdonald MD, MPH [address] [place] [phone] [email or web address] documented as of this encounter Visit Diagnoses Not on filedocumented in this encounter Additional Health Concerns Assessment Noted Time PHQ-2 Depression Total Score: 1 04/25/20 24 8:06 AM EDT documented as of this encounter Care Teams Community Action Worker Relationship Specialty Start Date End Date Valerie Sharma MD [address] [place] [address] PCP - General Internal Medicine 05/30/18 Codi Mcdonald MD, MPH [address] [place] [phone] [email or web address] 12/25/19 Nikhil Sandoval CNP [address] [place] [phone] [email or web address] 03/07/22 Brynn Cohn, [address] [address] [email or web address] Grab Driver 06/30/23 June Park MD [address] [place] [id number] [email or web address] Radiation Oncology 07/22/24 documented as of this encounter Additional Source Comments The information contained in this document represents components of the legal health record. It is not the complete legal health record.[facility]
--- OUTSIDE RECORDS SUMMARY | 2025-02-06 09:43 | XMS_ITS | Clinical Summary ---
Author Organization [facility] Address [address] [facility] [address] [place] [address] Phone Care Team Providers Care Plastics Worker Name Role Phone Valerie Sharma MD Primary Care Provider [phone] Codi Mcdonald MD, MPH Unavailable [phone] Nikhil Sandoval [facility] Unavailable [phone] Brynn Cohn [facility] Unavailable [phone] June Park MD Unavailable Allergies No known active allergies Medications Medication Sig Dispensed Refills Start Date End Date Status metoprolol succinate (TOPROL-XL) 100 MG 24 hr tablet 06/07/2023 Active abemaciclib (VERZENIO) 150 mg tabletIndications:R ecurrent malignant neoplasm of left breast Take 1 tablet (150 mg total) by mouth 2 (two) times a day. Follow instructions given by provider. 56 tablet 10 02/21/2024 Active leuprolide, 3 month, (LUPRON DEPOT 3 MONTH) 11.25 mg IM injection syringe Inject 11.25 mg into the muscle every 3 (three) months. Active cetirizine (ZYRTEC) 5 MG tablet Take 5 mg by mouth daily. Active atorvastatin (LIPITOR) 10 MG tablet TAKE 1/2 TABLET BY MOUTH EVERY DAY AT BEDTIME 06/01/2024 Active furosemide (LASIX) 20 MG tablet Take 20 mg by mouth every other day. 06/07/2024 Active ELIQUIS 5 mg tablet Take 1 tablet by mouth 2 (two) times a day. 08/01/2024 Active letrozole (FEMARA) 2.5 mg tabletIndications:R ecurrent malignant neoplasm of left breast Take 1 tablet (2.5 mg total) by mouth daily. Follow instructions given by provider. 90 tablet 3 09/30/2024 Active famotidine (PEPCID) 40 MG tabletIndications:G astroesophageal reflux disease with esophagitis without hemorrhage Take 0.5 tablets (20 mg total) by mouth 2 (two) times a day. 10/23/2024 Active Active Problems Problem Noted Date Diagnosed Date Snoring 06/13/2024 Arrhythmia 06/13/2024 Overview (06/13/2024): Afib followed by cardiology at [facility]. 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, estrogen receptor positive 06/04/2018 Cancer Staging:Clinical:Stage IB(cT2, cN0, cM0, Sharon: G2, ER: Positive, WI: Positive, HER2: Positive, Oncotype DX score: 27) - Signed by Codi Mcdonald MD, MPH on 12/26/2018 Pathologic:Stage IA(pT1c, pN0(sn), cM0, Sharon: G3, ER: Positive, WI: Positive, HER2: Negative, Oncotype DX score: 27) - Unsigned Resolved Problems Problem Noted Date Diagnosed Date Resolved Date Cough 10/26/2019 07/30/2020 Sinusitis, acute 10/26/2019 07/30/2020 Encounters Date Type Department Care Team Description 01/10/2025 Orders Only [facility], [facility] [place] [address] [place] [address] Codi Mcdonald MD, MPH Recurrent malignant neoplasm of left breast (Primary Dx) 01/08/2025 2:45 PM EDT Infusion Infusion Therapy Services [place] [address], [facility] [place] [address] [facility] [place] [address] Codi Mcdonald MD, MPH Demetria Charlton, RN Recurrent malignant neoplasm of left breast (Primary Dx) 01/08/2025 2:00 PM EDT Office Visit [facility], [facility], [facility] [place] [address] [place] [id number] Codi Mcdonald MD, MPH Recurrent malignant neoplasm of left breast (Primary Dx) 01/08/2025 7:14 AM EDT - 01/08/2025 11:59 PM EDT Hospital Encounter [facility], [facility], PET/CT [address] [place] [address] Codi Mcdonald MD, MPH Discharge Disposition: Home or Self Care from Last 3 Months Immunizations Name Administration Dates Next Due COVID-19 (Pre) Moderna Vaccine, mRNA, PF 0 03/20/2021,02/20/2021 COVID-19 (Pre-08/21) Pfizer Vaccine, mRNA, elio-sucrose, PF 01/14/2022 Tdap 09/01/2018 Family History Medical History Relation Comments Lung cancer Brother Breast cancer Cousin Maternal Prostate cancer Maternal Uncle Breast cancer Sister 2 Ovarian cancer Neg Hx Relation Status Comments Brother Cousin Maternal Uncle Sister 1 Sister 2 Social History Tobacco Use Types Packs/Day Years Used Date Smoking Tobacco: Former Cigarettes 0.5 7 1 981 - 10/30/1987 Smokeless Tobacco: Never Tobacco Cessation:Counseling Given: Not Answered Alcohol Use Standard Drinks/Week Comments Not Currently 0 (1 standard drink = 0.6 oz pur e alcohol) Child or Family Care Answer Date Record ed Do you have problems with on e of the following making it difficult for you to work, study, or receive health care? No 08/07/2024 Education Answer Date Recorded Are you interested in help w ith more adult education (for example, completing high school, GED, job training, learning the Romanian language, technical skills, or developing parenting skills)? No 08/07/2024 Are you concerned about learning? Not on file 08/07/2024 No 08/07/2024 Yes 08/07/2024 Food Answer Date Recorded Within the past 6 months we worried whether our food would run out before we got money to buy more. Never True 08/07/2024 Within the past 6 months the food we bought just didn't last and we didn't have enough money to get more. Never True Residential Stability Answer Date Recor ded What is your housing situation today? I have gianluca sing 08/07/2024 How many times have you move d in the past 12 months? Zero (I did not move) 08/07/2024 Paying for Meds Answer Date Recorded Do you have trouble paying for medicines? No 08/07/2024 Paying Utility Bills Answer Date Record ed Do you have trouble paying your heating or elect ricity bill? No 08/07/2024 Transportation Answer Date Recorded Has the lack of transportati on kept you from medical appointments or from getting medications? No 08/07/2024 Digital Access Answer Date Recorded No 03/22/2023 [...] Orientation Straight 11/01/2023 10 :13 AM EST Last Filed Vital Signs Vital Sign Reading Time Taken Comments Blood Pressure 105/53 01/08/2025 1:56 PM EDT Pulse 79 01/08/2025 1:56 PM EDT Temperature 36.7 ??C (98 ??F) 01/08/2025 1:57 PM EDT Respiratory Rate 18 01/08/2025 1:56 PM EDT Oxygen Saturation 98% 01/08/2025 1:56 PM EDT Inhaled Oxygen Concentration - - Weight 112.4 kg (247 lb 12.8 oz) 01/08/2025 1:56 PM EDT Height 175.3 cm (5' 9 ) 08/08/2024 8:03 AM EDT Body Mass Index 36.59 08/08/2024 8:03 AM EDT Plan of Treatment Upcoming Encounters Date Type Department Care Team (Late st Contact Info) Description 04/09/2025 12:50 PM EDT Blood Draw Laboratory Services, [facility] [address] [place] [address] Codi Mcdonald MD, MPH [address] [place] [address] [email or web address] 04/09/2025 1:30 PM EDT Office Visit [facility], [facility], [facility] [address] [place] [address] Codi Mcdonald MD, MPH [address] [place] [address] [email or web address] 04/09/2025 2:15 PM EDT [facility], [facility] [address] [place] [address] Codi Mcdonald MD, MPH [address] [place] [address] [email or web address] Health Maintenance Due Date Last Done Comments LIPID PANEL 1959 HEPATITIS C SCREENING 1977 HIV ONE-TIME SCREENING (18-65 YEARS) 1977 PNEUMOCOCCAL VACCINES (50+ years) (1 of 2 - PCV) 1978 ZOSTER VACCINES (1 of 2) 1978 COLOGUARD 2004 COLONOSCOPY 2004 COLORECTAL CANCER SCREENING 2004 FIT TEST 2004 FOBT 2004 SIGMOIDOSCOPY 2004 VIRTUAL COLONOSCOPY 2004 INFLUENZA VACCINE (#1) 2024 ABDOMINAL AORTIC ANEURYSM (AAA) SCREENING 2024 04/11/2023 COVID-19 VACCINE ( season) 2024 01/14/2022, 03/20/2021, 02/20/2021 BLOOD PRESSURE 07/11/2025 01/08/2025 DEPRESSION SCREENING 08/08/2025 08/08/2024 CREATININE LEVEL 01/08/2026 01/08/2025, , 07/24/2024, Additional history exists SCREENING FOR DIABETES 01/09/2028 01/08/2025 Adult Td,Tdap Booster 09/01/2028 09/01/2018 RSV VACCINE (1 - 1-dose 75+ series) 2034 SMOKING STATUS SCREENING (Once After 26 Yrs) Completed 08/08/2024 HEPATITIS A VACCINES Aged Out No long er eligible based on patient's age to complete this topic HIB VACCINES Aged Out No longer eligi ble based on patient's age to complete this topic MENINGOCOCCAL VACCINES (ACWY) Aged Out No longer eligible based on patient's age to complete this topic Medical Devices Implanted Type Area Front Office Clerk Device Identifier Shelf Expiration Date Model / Serial / Lot Ankle Screw Marker Ultraclip Ii 17ga 10cm Breast Tissue Ribbon Shaped Titanium Bx/5ea - [id number] Implanted:Qty: 1 on 04/04/2023 at [facility] [employer] [id number] / / Procedures Procedure Name Priority Date/Time Associated Diagnosis Comments NM PET CT SKULL BASE TO MID THIGHS Routine 01/08/2025 9:29 AM EDT Recurrent malignant neoplasm of left breast POCT GLUCOSE Routine 01/08/2025 7:55 AM EDT CARCINOEMBRYONIC ANTIGEN (CEA) Routine 01/08/2025 7:28 AM EDT Recurrent malignant neoplasm of left breast COMPREHENSIVE METABOLIC PANEL Routine 01/08/2025 7:28 AM EDT Recurrent malignant neoplasm of left breast HC BLOOD COUNT COMPLETE AUTO&AUTO DIFRNTL WBC Routine 01/08/2025 7:28 AM EDT Recurrent malignant neoplasm of left breast CT ABDOMEN/PELVIS WITH CONTRAST Routine 04/11/2023 2:14 PM EDT 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, estrogen receptor positive Recurrent malignant neoplasm of breast, unspecified laterality from Last 3 Months or Most Recently Relevant to Health Maintenance Results * NM PET CT Skull Base to Mid Thighs (01/08/2025 9:29 AM EDT) Anatomical Region Laterality Modality Computed Tomogra phy Other 01/08/2025 10:1 5 AM EDT Impressions 01/08/2025 5:16 PM EDT 1. ??The previously described consolidative nodular opacities in the left lung base have resolved. 2. ??Stable subcentimeter pulmonary nodules that remain below PET resolution. 3. ??Status post left axillary dissection with inflammatory pattern nonfocal FDG uptake. 4. ??Further decrease in size and FDG uptake of a right paratracheal lymph node and resolution of the subcarinal lymph node likely representing improving pulmonary inflammation or ??treatment response. 5. ??No new abnormal FDG uptake. ATTESTATION: Leon Huddleston, as teaching physician have reviewed the images, if any, for this patient's exam, and if necessary, have edited the report originally created by Yesika Martin. Narrative 01/08/2025 5:16 PM EDT Reason for exam (per EHR order): * Invasive breast cancer, stage I/II/III, initial workup Additional clinical information obtained from the EHR: 64-year-old male. Left breast cancer status post mastectomy with recurrence in the left axilla. Completed axillary lymph node dissection and radiation. Currently on abemaciclib and letrozole. Subsequent treatment strategy. TECHNIQUE: Radiopharmaceutical: F-18-FDG. Dose: 10.09 mCi. Blood glucose: 97 mg/dL. Image acquisition: At 68 minutes following IV tracer administration via a right antecubital vein, positron emission tomography was performed from the base of the skull through the mid thigh. Non-contrast low-dose helical CT imaging was performed over the same range without breath-hold for attenuation correction of PET images and anatomic correlation. COMPARISON: Priors including PET/CT 04/10/2024.. FINDINGS: HEAD AND NECK: Misregistration between the PET and CT portion of the head due to patient movement. Redemonstrated scattered opacification of the ethmoid air cells. New focus of FDG uptake in the right mandibular/right molar region likely due to periodontic/inflammatory changes. CHEST: Ports and devices: None. Lungs: The previously described intense FDG avid left lower lobe groundglass, nodular consolidative opacities have resolved. Similar subcentimeter pulmonary nodules, too small to evaluate with PET: Similar 0.2 cm nodule in the superior segment of the left lower lobe on image 93. Similar 0.5 cm right upper lobe nodule on image 91. Similar faint FDG uptake in a similar appearing 0.5 cm left upper lung nodule on image 84. Pleura: No abnormal FDG uptake. Lymph Nodes: Further decrease in size and FDG uptake of a right paratracheal lymph node (SUV max 2.8, 1.2 x 0.7 cm, image 82 versus SUV max 4.0 and measured 1.5 x 1.0 cm previously). The mild FDG uptake of the previously mentioned subcarinal lymph node has resolved. Status post left axillary dissection and associated moderate FDG uptake likely inflammatory. Mediastinum: Similar distal esophageal uptake is most likely inflammatory. Similar left atrial enlargement. ??Trace pericardial effusion. Aortic valve leaflet calcifications. Breasts/Chest Wall: No abnormal FDG uptake. ABDOMEN/PELVIS: Liver/biliary system: No abnormal FDG uptake. Pancreas: No abnormal FDG uptake. Spleen: No abnormal FDG uptake. Adrenal Glands: No abnormal FDG uptake. Kidneys: Similar photopenic hypoattenuating bilateral renal cysts. Bowel: No abnormal FDG uptake. Mesentery, Omentum and Peritoneum: No abnormal FDG uptake. Mild aortic and iliac atherosclerotic vascular calcifications. Pelvic Organs: No abnormal FDG uptake. ??Coarse calcifications in the prostate. Lymph Nodes: No abnormal FDG uptake. MUSCULOSKELETAL: No abnormal FDG uptake. Similar non-FDG avid sclerotic focus of the right iliac bone. Small fat-containing bilateral inguinal hernias. Procedure Note Leon Gilman MBBS - 01/08/2025 Reason for exam (per EHR order): * Invasive breast cancer, stage I/II/III,initial workup Additional clinical information obtained from the EHR: 64-year-old male.Left breast cancer status post mastectomy with recurrence in the leftaxilla. Completed axillary lymph node dissection and radiation. Currentlyon abemaciclib and letrozole. Subsequent treatment strategy. TECHNIQUE: Radiopharmaceutical: F-18-FDG. Dose: 10.09 mCi. Blood glucose: 97 mg/dL. Image acquisition: At 68 minutes following IV tracer administration via aright antecubital vein, positron emission tomography was performed fromthe base of the skull through the mid thigh. Non-contrast low-dose helicalCT imaging was performed over the same range without breath-hold forattenuation correction of PET images and anatomic correlation. COMPARISON: Priors including PET/CT 04/10/2024.. FINDINGS: HEAD AND NECK: Misregistration between the PET and CT portion of the headdue to patient movement. Redemonstrated scattered opacification of the ethmoid air cells. New focus of FDG uptake in the right mandibular/right molar region likelydue to periodontic/inflammatory changes. CHEST: Ports and devices: None. Lungs: The previously described intense FDG avid left lower lobe groundglass,nodular consolidative opacities have resolved. Similar subcentimeter pulmonary nodules, too small to evaluate with PET: Similar 0.2 cm nodule in the superior segment of the left lower lobe onimage 93. Similar 0.5 cm right upper lobe nodule on image 91. Similar faint FDG uptake in a similar appearing 0.5 cm left upper lungnodule on image 84. Pleura: No abnormal FDG uptake. Lymph Nodes: Further decrease in size and FDG uptake of a right paratracheal lymph node(SUV max 2.8, 1.2 x 0.7 cm, image 82 versus SUV max 4.0 and measured 1.5 x1.0 cm previously). The mild FDG uptake of the previously mentioned subcarinal lymph node hasresolved. Status post left axillary dissection and associated moderate FDG uptakelikely inflammatory. Mediastinum: Similar distal esophageal uptake is most likely inflammatory. Similar leftatrial enlargement. Trace pericardial effusion. Aortic valve leafletcalcifications. Breasts/Chest Wall: No abnormal FDG uptake. ABDOMEN/PELVIS: Liver/biliary system: No abnormal FDG uptake. Pancreas: No abnormal FDG uptake. Spleen: No abnormal FDG uptake. Adrenal Glands: No abnormal FDG uptake. Kidneys: Similar photopenic hypoattenuating bilateral renal cysts. Bowel: No abnormal FDG uptake. Mesentery, Omentum and Peritoneum: No abnormal FDG uptake. Mild aortic andiliac atherosclerotic vascular calcifications. Pelvic Organs: No abnormal FDG uptake. Coarse calcifications in theprostate. Lymph Nodes: No abnormal FDG uptake. MUSCULOSKELETAL: No abnormal FDG uptake. Similar non-FDG avid scleroticfocus of the right iliac bone. Small fat-containing bilateral inguinalhernias. IMPRESSION: 1. The previously described consolidative nodular opacities in the leftlung base have resolved. 2. Stable subcentimeter pulmonary nodules that remain below PETresolution. 3. Status post left axillary dissection with inflammatory patternnonfocal FDG uptake. 4. Further decrease in size and FDG uptake of a right paratracheal lymphnode and resolution of the subcarinal lymph node likely representingimproving pulmonary inflammation or treatment response. 5. No new abnormal FDG uptake. ATTESTATION: Leon Huddleston, as teaching physician have reviewed theimages, if any, for this patient's exam, and if necessary, have edited thereport originally created by Yesika Martin. Codi Mcdonald MD, MPH [facility] PET * POCT Glucose (01/08/2025 7:55 AM EDT) Pathologist [facility] WHOLE BLOOD GLUCOSE 97 70 - 110 mg/dL [facility] LIC# [id number] 01/08/2025 7:55 AM EDT 01/08/2025 7:57 AM EDT Codi Mcdonald MD, MPH POINT OF CARE TEST ORDERABLES [facility] LIC# [id number] [address] [place] [address] * Comprehensive metabolic panel (01/08/2025 7:28 AM EDT) Pathologist [facility] SODIUM 139 136 - 145 mmol/L [facility] LIC# [id number] POTASSIUM 4.0 3.4 - 5.1 mmol/L [facility] LIC# [id number] CHLORIDE 104 98 - 107 mmol/L [facility] LIC# [id number] CO2 25 22 - 31 mmol/L [facility] LIC# [id number] BUN 22 6 - 23 mg/dL [facility] LIC# [id number] CREATININE 1.04 0.50 - 1.20 mg/dL [facility] LIC# [id number] GLUCOSE 95 70 - 100 mg/dL [facility] LIC# [id number] ALBUMIN 3.9 3.5 - 5.2 g/dL [facility] LIC# [id number] TOTAL PROTEIN 7.0 6.4 - 8.3 g/dL [facility] LIC# [id number] CALCIUM 9.5 8.8 - 10.7 mg/dL [facility] LIC# [id number] ALKALINE PHOSPHATASE 86 40 - 129 U/L [facility] LIC# [id number] TOTAL BILIRUBIN 0.4 0.2 - 1.2 mg/dL [facility] LIC# [id number] AST 20 <41 U/L [facility] LIC# [id number] ALT 16 <42 U/L [facility] LIC# [id number] GLOBULIN 3.1 2.3 - 4.2 g/dL [facility] LIC# [id number] EGFR 80 >59 mL/min/1.7 3m2 [facility] LIC# [id number] Comment:Estimated glomerular filtration rate calculated using the CKD-EPI refit equation. ANION GAP 10 7 - 17 mmol/L [facility] LIC# [id number] Blood 01/08/2025 7:28 AM EDT 01/08/2025 7:53 AM EDT Codi Mcdonald MD, MPH LAB BLOOD [facility]DE [facility] Organization Address City/State/ZIP Co de Phone Number [facility] LIC# [id number] [address] [place] [address] * (ABNORMAL) CBC and differential (01/08/2025 7:28 AM EDT) WBC 3.47(L) 4.00 - 10.00 K/uL [facility] LIC# [id number] RBC 3.63(L) 4.50 - 6.40 M/uL [facility] LIC# [id number] HGB 12.1(L) 13.5 - 18.0 g/dL [facility] LIC# [id number] HCT 35.5(L) 40.0 - 54.0 % [facility] LIC# [id number] PLT 141(L) 150 - 450 K/uL [facility] LIC# [id number] MCV 97.8 80.0 - 100.0 fL [facility] LIC# [id number] MCH 33.3(H) 27.0 - 32.0 pg [facility] LIC# [id number] MCHC 34.1 32.0 - 36.0 g/dL [facility] LIC# [id number] RDW 14.9(H) 11.5 - 14.5 % [facility] LIC# [id number] MPV 9.1 8.4 - 12.0 fL [facility] LIC# [id number] NRBC 0.00 0 /100 WBCs [facility] LIC# [id number] ABSOLUTE NRBC 0.00 0 K/uL [facility] LIC# [id number] DIFF METHOD Auto [facility] LIC# [id number] NEUTS 47.0(L) 48.0 - 76.0 % [facility] LIC# [id number] LYMPHS 38.9 18.0 - 41.0 % [facility] LIC# [id number] MONOS 10.4 4.0 - 11.0 % [facility] LIC# [id number] EOS 2.0 0.0 - 5.0 % [facility] LIC# [id number] BASOS 1.4 0.0 - 1.5 % [facility] LIC# [id number] % IMMATURE GRANS 0.3 0.0 - 1.0 % [facility] LIC# [id number] ABSOLUTE NEUTS 1.63(L) 1.92 - 7.60 K/uL [facility] LIC# [id number] ABSOLUTE LYMPHS 1.35 0.72 - 4.10 K/uL [facility] LIC# [id number] ABSOLUTE MONOS 0.36 0.16 - 1.10 K/uL [facility] LIC# [id number] ABSOLUTE EOS 0.07 0.00 - 0.50 K/uL [facility] LIC# [id number] ABSOLUTE BASOS 0.05 0.00 - 0.15 K/uL [facility] LIC# [id number] ABS IMMATURE GRANS 0.01 0.00 - 0.10 K/uL [facility] LIC# [id number] Blood 01/08/2025 7:28 AM EDT 01/08/2025 7:53 AM EDT Codi Mcdonald MD, MPH LAB BLOOD ORDMadie BRO Performing Organization Address City/[facility] Co de Phone Number [facility] LIC# [id number] [address] [place] [address] * Carcinoembryonic antigen (CEA) (01/08/2025 7:28 AM EDT) CEA 1.3 0 - 3.7 ng/mL [facility] LIC# [id number] Comment: ? CEA REFERENCE RANGE: ?NON-SMOKERS: < 3.8 ng/mL ?SMOKERS: < 5.0 ng/mL Blood 01/08/2025 7:28 AM EDT 01/08/2025 7:53 AM EDT Codi Mcdonald MD, MPH LAB BLOOD ORDMadie BRO [facility] LIC# [id number] [address] [place] [address] * CT ABDOMEN/PELVIS WITH CONTRAST (04/11/2023 2:14 PM EDT) Anatomical Region Laterality Modality Abdomen, Pelvis Computed Tomogra phy Other 04/11/2023 3:45 PM EDT Impressions 04/12/2023 6:30 AM EDT No evidence of metastatic disease within the abdomen or pelvis. ATTESTATION: Rivka Huddleston, as teaching physician have reviewed the images, if any, for this patient's exam, and if necessary, have edited the report originally created by Marquez Vences. Narrative 04/12/2023 6:[address] ABDOMEN/PELVIS WITH CONTRAST Review of the Electronic Medical Record reveals an additional history of: Breast cancer, left status post mastectomy currentl yon Tamoxifen. TECHNIQUE: Multidetector-row CT of the abdomen and pelvis was performed after administration of intravenous contrast using tailored dose modulation techniques. Images were reconstructed in the axial, coronal, and sagittal planes. COMPARISON: CT CHEST OUTSIDE (NO INTERPRETATION) FINDINGS: Lower Chest: CT chest from the same day is reported separately. Liver: Diffusely low in attenuation, likely fatty liver. No focal lesions. Biliary: No biliary ductal dilatation. Spleen: No splenomegaly or focal lesions. Pancreas: No masses or ductal dilatation. Adrenal Glands: No nodules. Kidneys/Ureters: Right renal cysts measuring up to 5.0 cm in the upper pole of the right kidney (7:21). Additional scattered subcentimeter hypoattenuating renal lesions, too small to characterize but likely cysts. No solid masses, stones, or hydronephrosis. Bowel: No distention or wall thickening. Peritoneum/Retroperitoneum: No masses, pneumoperitoneum, or fluid. Lymph Nodes: No lymphadenopathy. Pelvic Organs/Bladder: No mass. Vessels: No abdominal aortic aneurysm. Bones/Soft Tissues: No destructive osseous lesions. Procedure Note Rivka Dempsey MD - 04/12/2023 CT ABDOMEN/PELVIS WITH CONTRAST Review of the Electronic Medical Record reveals an additional history of:Breast cancer, left status post mastectomy currentl yon Tamoxifen. TECHNIQUE: Multidetector-row CT of the abdomen and pelvis was performedafter administration of intravenous contrast using tailored dosemodulation techniques. Images were reconstructed in the axial, coronal,and sagittal planes. COMPARISON: CT CHEST OUTSIDE (NO INTERPRETATION) FINDINGS: Lower Chest: CT chest from the same day is reported separately. Liver: Diffusely low in attenuation, likely fatty liver. No focallesions. Biliary: No biliary ductal dilatation. Spleen: No splenomegaly or focal lesions. Pancreas: No masses or ductal dilatation. Adrenal Glands: No nodules. Kidneys/Ureters: Right renal cysts measuring up to 5.0 cm in the upperpole of the right kidney (7:21). Additional scattered subcentimeterhypoattenuating renal lesions, too small to characterize but likely cysts.No solid masses, stones, or hydronephrosis. Bowel: No distention or wall thickening. Peritoneum/Retroperitoneum: No masses, pneumoperitoneum, or fluid. Lymph Nodes: No lymphadenopathy. Pelvic Organs/Bladder: No mass. Vessels: No abdominal aortic aneurysm. Bones/Soft Tissues: No destructive osseous lesions. IMPRESSION: No evidence of metastatic disease within the abdomen or pelvis. ATTESTATION: Rivka Huddleston, as teaching physician have reviewedthe images, if any, for this patient's exam, and if necessary, have editedthe report originally created by Marquez Vences. Codi Mcdonald MD, MPH IMG CT ABD/PEL VIS from Last 3 Months or Most Recently Relevant to Health Maintenance Care Teams Plastics Worker Relationship Specialty Start Date End Date Valerie Sharma MD [address] [place] [address] PCP - General Internal Medicine 05/30/18 Codi Mcdonald MD, MPH [address] [place] [phone] [email or web address] Medical Oncology 12/25/19 Nikhil Sandoval, SERVICE DISPATCHER [address] [place] [id number] [email or web address] Oncology 03/07/22 Brynn Cohn [address] [address] [email or web address] Sales Representative 06/30/23 uJne Park MD [address] [place] [id number] [email or web address] Radiation Oncology 07/22/24 Additional Source Comments The information contained in this document represents components of the legal health record. It is not the complete legal health record.[facility]
--- OUTSIDE RECORDS SUMMARY | 2025-02-06 09:43 | XMS_ITS | Encounter Summary ---
Author Organization [facility] Address [address] [facility] [address] [place] [address] Phone Care Team Providers Care Flower Shop Laborer/Designer Name Role Phone Valerie Sharma MD Primary Care Provider [phone] Codi Mcdonald MD, MPH Unavailable + [phone] Nikhil Sandoval [facility] Unavailable [phone] Brynn Cohn [facility] Unavailable [phone] June Park MD Unavailable Encounter Details Date Type Department Care Team (Late st Contact Info) Description 07/22/2020 Procedure Pass [facility] Cancer [place], Mammography, Sindi Lank Imaging Department [address] [place] [address] Social History Tobacco Use Types [...] Laboratory Services, [facility] [address] [place] [address] Codi Mcdonald MD, MPH [address] [place] [phone] [email or web address] 04/09/2025 1:30 PM EDT Office Visit [facility] for Breast [facility], Trisha Bravo [place] [facility], [facility] 450 [facility], [address] [address] Codi Mcdonald MD, MPH [address] [place] [phone] Veronica@[email or web address] 04/09/2025 2:15 PM EDT Infusion Infusion Therapy Services [address] [place] [address] Codi Mcdonald MD, MPH [address] [place] [phone] [email or web address] documented as of this encounter Visit Diagnoses Not on filedocumented in this encounter Additional Health Concerns Infection Onset Date Last Indicated Resolved Time CoV-Exposed 06/17/2023 06/19/2023 06/27/2023 1:24 AM EDT documented as of this encounter Care Teams Flower Shop Laborer/Designer Relationship Specialty Start Date End Date Valerie Sharma MD [address] [place] [address] PCP - General Internal Medicine 05/30/18 Codi Mcdonald MD, MPH [address] [place] [phone] [email or web address] Medical Oncology 12/25/19 Nikhil Sandoval, SCREENING TECH [address] [place] [phone] [email or web address] Oncology 03/07/22 Brynn Cohn [address] [address] [email or web address] Person 06/30/23 June Park MD [address] [place] [phone] [email or web address] Radiation Oncology 07/22/24 documented as of this encounter Additional Source Comments The information contained in this document represents components of the legal health record. It is not the complete legal health record.[facility]
--- OUTSIDE RECORDS SUMMARY | 2025-02-06 09:43 | XMS_ITS | Encounter Summary ---
Author Organization [facility] Address [address] [place] [address] Phone Care Team Providers Care Pre Press Manager Name Role Phone Valerie Sharma MD Primary Care Provider [phone] Codi Mcdonald MD, MPH Unavailable [phone] Nikhil Sandoval [facility] Unavailable + [phone] [facility] Unavailable [phone] June Park MD Unavailable Encounter Details Date Type Department Care Team (Late st Contact Info) Description 12/29/2023 Procedure Pass [facility] Cancer [facility], MRI [address] [address] Social History Tobacco Use Types Packs/Day Years [...] 12:50 PM EDT Blood Draw Laboratory Services, [facility] [address] [facility] [address] [place], [place] Codi Mcdonald MD, MPH [address] [place] [phone] [email or web address] 04/09/2025 1:30 PM EDT Office Visit Center for Breast Oncology, Trisha [facility]ravo [place] [facility], [facility] [address] [facility] [address] [place] [address] Codi Mcdonald MD, MPH [address] [place] [phone] [email or web address]@[email or web address] 04/09/2025 2:15 PM EDT Infusion Infusion Therapy Services [address] 450 [facility] [address] [place] [address] Codi Mcdonald MD, MPH [address] [place] [phone] [email or web address] documented as of this encounter Visit Diagnoses Not on filedocumented in this encounter Care Teams Pre Press Manager Relationship Specialty Start Date End Date Valerie Sharma MD [address] [place] [address] PCP - General Internal Medicine 05/30/18 Codi Mcdonald MD, MPH [address] [place] [phone] [email or web address] Medical Oncology 12/25/19 Nikhil Sandoval CNP [address] [place] [phone] [email or web address] Oncology 03/07/22 Brynn Cohn, [address] [address] [email or web address] 06/30/23 June Park MD [address] [place] [phone] [email or web address] Radiation Oncology 07/22/24 documented as of this encounter Additional Source Comments The information contained in this document represents components of the legal health record. It is not the complete legal health record.[facility]
--- OUTSIDE RECORDS SUMMARY | 2025-02-06 09:43 | XMS_ITS ---
Author Organization [facility] Address [address] [facility] [address] [place] [address] Phone Care Team Providers Care Shrimp Peeler Name Role Phone Valerie Sharma MD Primary Care Provider [phone] Codi Mcdonald MD, MPH Unavailable [phone] Nikhil Sandoval [facility] Unavailable [phone] Brynn Cohn [facility] Unavailable [phone] June Park MD Unavailable Active Problems Problem Noted Date Diagnosed Date Snoring 06/13/2024 Arrhythmia 06/13/2024 Overview (06/13/2024): Afib followed by cardiology at [facility]. 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, estrogen receptor positive 06/04/2018 Cancer Staging:Clinical:Stage IB(cT2, cN0, cM0, Grayling: G2, ER: Positive, ND: Positive, HER2: Positive, Oncotype DX score: 27) - Signed by Codi Mcdonald MD, MPH on 12/26/2018 Pathologic:Stage IA(pT1c, pN0(sn), cM0, Grayling: G3, ER: Positive, ND: Positive, HER2: Negative, Oncotype DX score: 27) - Unsigned Current Oncology Plans ABEMACICLIB/LETROZOLE* Plan Start Date:04/26/2023 Plan Provider:Codi Mcdonald MD, MPH Linked Problems Recurrent malignant neoplasm of left breast Treatment Medications Current Day (Day 1 , Cycle 2 - Planned for 05/24/2023) Next Day (Day 1, Cycle 3 - Planned for 06/21/2023) abemaciclib (VERZENIO)letrozole (FEMARA) abemaciclib (VERZENIO) 150 mg tabletletrozole (FEMARA) 2.5 mg tablet abemaciclib (VERZENIO) 150 mg tabletletrozole (FEMARA) 2.5 mg tablet LEUPROLIDE ACETATE 3 MONTH (LUPRON DEPOT 3 MONTH)* Plan Start Date:04/19/2023 Plan Provider:Codi Mcdonald MD, MPH Linked Problems Recurrent malignant neoplasm of left breast Treatment Medications leuprolide (3 month) (LUPRON DEPOT 3 MONTH) Past Plans TREATMENT PLAN Plan Name Start Date Discontinue Date Treatment Medications Discontinue Reason Plan Provider Cycles ABEMACIC CHAITANYA/FULV ESTRANT 04/26/2023 04/19/2023 abemaciclib (VERZENIO)fulve strant (FASLODEX) m. Entered in error Codi Mcdonald MD, MPH Treatment not started Radiation Treatments * No radiation treatments are documented for this patient in [facility]. Treatments may have been administered in another system. Treatment Summaries 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, estrogen receptor positive* Breast Cancer Treatment Summary Provided by Nikhil Sandoval NP on 03/07/2023 [facility], TRISHA Bravo [place] [facility], [facility] [address] [place] [address], [place] 9 [facility] [address] Dept: [phone] Demographic Information Patient Name Geo Garza Patient (home) Date of 1960 Support Contact Extended Emergency Contact Information Primary Emergency Contact: Balta Garza [address]: [address] [place] [address] of Evelyn Relation: Spouse Care Team Patient Care Team Relationship Specialty Department Valerie Sharma MD PCP - General Internal Medicine Address: [address] [place] [address] Codi Mcdonald MD, MPH Medical Oncology [facility], Trisha [facility], [facility] Address: [address] [place] [address] Nikhil Sandoval NP Oncology Center [facility] Breast [facility], [facility], [facility] Address: [address] [place] [address] Cancer Diagnosis Information Diagnosis Date Staging Information Cancer Staging 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, estrogen receptor positive Staging form: Breast, AJCC 8th Edition - Clinical: Stage IB (cT2, cN0, cM0, Grayling: G2, ER: Positive, ND: Positive, HER2: Positive, Oncotype DX score: 27) - Signed by Codi Mcdonald MD, MPH on 12/26/2018 Staging form: Breast, AJCC 8th Edition - Pathologic: Stage IA (pT1c, pN0(sn), cM0, Sharon: G3, ER: Positive, ND: Positive, HER2: Negative, Oncotype DX score: 27) - Unsigned Background Information Family History Cancer-related family history includes Breast cancer (age of onset: 50) in his cousin; Lung cancer in his brother; Prostate cancer (age of onset: 65) in his maternal uncle. There is nohistory of Ovarian cancer. Genetic Testing - Tobacco Use Social History Tobacco Use Smoking Status Former Types: Cigarettes Quit date: 1987 Years since quittin.3 Smokeless Tobacco Never Vaping Use Vaping Status Not on file Treatment History Oncology History Overview Note March 2018 - Geo's noticed a lump in his left breast. 04/23/18 - b/l dx MM.4 cm mass L breast with suspicious features. R breast unremarkable. 04/23/18 - US: hypoechoic mass measuring 2.4 x 1.1 x 1.9 cm. 04/25/2018 - CNB L breast: IDC, Grade II/III, ER+(100%)/ND+(10%)/HER2-(2+, ratio 1.5, copy number 6.3) 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, estrogen receptor positive 04/25/2018 Initial Diagnosis 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, estrogen receptor positive 05/14/2018 Surgery L simple mastectomy and SLNB (Dr. Mariely Dickson): IDC, 1.5 cm, grade II/III, margins were negative by at least 1 cm[address] 0/1 LN involved metastatic disease. PT1cN0. HER2- (1+, HER2 3.7/CEP17 2.5 = ratio 1.48) Oncotype RS = 27 07/05/2018 - Systemic Therapy Tamoxifen Lifetime Dose History Lifetime Dose Tracking No doses have been documented on this patient for the following tracked chemicals: doxorubicin, epirubicin, idarubicin, daunorubicin, mitoxantrone, bleomycin, busulfan, doxorubicin HCl pegylated liposomal Treatment Goal Curative Response to Treatment No Evidence of Disease Hormonal Therapy Hormonal Therapy Current: Tamoxifen Hormonal Therapy Planned Duration: 5 years Potential Side Effects: menopausal-like symptoms such as hot flashes, mood changes, 1% risk of DVT Cancer Follow-up and Survivorship Care Oncology Follow-up Visits Frequency and Who to See: STAGES I-III, ANY TREATMENT: History and physical exam with medical oncology: Every 6 months for year 1 If ER positive: 6-12 months for years 2-10 or while on endocrine therapy (whichever is later). Thereafter, then may graduate to survivorship or PCP care for follow-up, annual exam, and breast imagingas needed Institution Where Oncology Follow-Up Will Take Place: [facility] Oncology Follow-up Labs or Radiology Tests: No lab or radiology tests are recommended for routine breast cancer follow-up care, except breast imaging such as mammogram, to monitor you for your history of breast cancer in the absence of symptoms. This is because they have not been shown to improve how a breast cancer survivor does in the longrun from a survival and/or quality of life standpoint. Surveillance Screening: Right Breast Mammogram Frequency: MAMMOGRAM: Yearly starting one year after diagnosis or six months after radiation therapy ends Department to Order Screening: Adult Survivorship Institution Where Screening Will Take Place: [facility] Additional Screening: Bone Health Monitoring Frequency of testing: Initial screening is indicated for survivors receiving aromatase inhibitor therapy or who experience premature menopause due to chemotherapy, ovarian suppression, or bilateral oophorectomy. Additional bone testing every 1-2 years; survivors with normal results and no other risk factors may have less frequent bone density monitoring. Who will monitor bone density: Primary Care Counseling for Cancer Survivors Breast Treatment Related Issues CARDIOVASCULAR ISSUES: Survivors who received anthracyclines have a low risk of developing cardiomyopathy or arrhythmias. Please follow up with your primary care provider about cardiac risk factor reduction, including management of lipids and blood pressure control, smoking, weight, exercise, diet,and diabetes/glucose. Additional cardiac screening may be recommended. Please contact your PCP if you experience any chest pain, shortness of breath, unusual fatigue, palpitations, or swelling in thelegs. LYMPHEDEMA: You may experience swelling of your arm, breast, or chest wall. This is called lymphedema. If you are at risk for lymphedema, avoid infection and injuries to the arm and minor trauma to the affected side. You may consider wearing a compression garment. Moderate gradual weight bearing exercise using the affected limb is associated with a decrease in development of lymphedema and reduction in exacerbations among patients with lymphedema. If you develop lymphedema, you may be referred to physical therapy for treatment PSYCHOSOCIAL ISSUES: When treatment has been completed, many survivors struggle with fear of recurrence, depression and/or anxiety, social/family relationships, and employment/financial health. Survivors should discuss any issues that are decreasing their quality of life or emotional wellbeing withtheir providers. Survivorship education and support programs are available, and a referral to a mental health provider may also be beneficial. HEALTH BEHAVIORS: All cancer survivors are encouraged to pursue a healthy lifestyle that includes the following: Weight management - Achieve and maintain a healthy body weight. Exercise and a healthy diet are critical components. If overweight or obese, limit consumption of high-calorie foods and beverages and increase physical activity to achieve a healthy weight. Exercise - Avoid inactivity and return to normal daily activities as soon as possible following diagnosis. Aim to exercise at least 150 minutes per week. Include strength training exercises at least 2 days per week. Nutrition - Eat a diet high in vegetables, fruits, and whole grains. Smoking- Avoid smoking; your provider can refer you to a smoking cessation program if you do smoke. Alcohol - Limit alcohol intake to one drink or less per day for women or two drinks or less per dayfor men. For more information consider the [place] Cancer Society Guidelines on Nutrition and Physical Activity for Cancer Prevention: http://onlinelibrary.antunez.com/doi/10.3322/caac.97634/full MALE SEXUAL HEALTH: Sexual difficulties can occur after cancer treatment. Please discuss any concerns with your providers, who may order additional lab work, prescribe medication to help restore sexual functioning, or refer you to another provider. COGNITIVE ISSUES: Patients who have had whole brain or cranial radiation have a greater risk for long-term problems with memory or concentration, but any patient that received cancer treatment has some risk. Report any issue, including how much it is affecting your life, to a health care provider. FATIGUE: You may experience fatigue as a result of cancer treatment, which often continues even after treatment has ended. Staying physically active can reduce fatigue, and meeting with a merchandising director to review your diet or meeting with a therapist to discuss your emotional needs can also help. Integrative therapies, including yoga or acupuncture, may help with management of fatigue. Please discuss any fatigue-related concerns with your medical provider. There may potentially be long-term late effects of cancer treatment. For further information, please visit the following websites: http://www.livesConnect[place].com.org/we-can-help/lelnkga-iuuvpu-hucwt-treatment/ mkwh-cgobbfu-ot-cancer-treatment/ https://www.cancer.net/survivorship/stsx-lxqs-ntwl-vhnfktm-swfysj-tygdmrxqt Routine Follow Up Care Primary Care: You should follow up on a regular basis with your primary care provider for health care maintenance, routine health screenings, and preventative care. How often you see your primary care provider depends on your age and overall health. We recommend that you discuss with your provider how often you should be seen and which screening tests are required based on your age and medical history. Reasons to Call Symptoms are common in breast cancer survivors and it can be difficult to know when to call your care team. Below are some symptoms of concern. Please call your provider for further evaluation if youexperience any of these symptoms: New lumps in the breast? ? Pain in specific area of breast Bone pain? ? Chest pain? ? Abdominal pain? ? Shortness of breath or difficulty breathing? ? Persistent headaches? ? Persistent coughing? ? Rash on breast? ? Swelling in breast or arm Nipple discharge (liquid coming from the nipple)?? Unexplained weight loss Any new or unusual symptoms Survivorship Resources and Studies For more information, please visit the following websites: [place] Society of Clinical Oncology Patient and Family Resources [facility] Patient and Caregiver Resources [employer] [place] Cancer Society: Survivorship During and After Treatment The Leukemia and Lymphoma Society Children's Oncology Group Contact the [facility] Adult Survivorship Programat [phone] or email [email or web address] with any questions or for more information. The survivorship program also has additional informative videos for adult survivors of cancer: http: //www.[facility].org/Adult-Care/Zuciughlm-hzq-Giiajcy/Xwyopguuc-Clzslyv-oqw-[facility]-Services/Egrxh-Nxihfhgixuwx-Uaqwbuk.aspx The [facility] Resource [place] has resources for patients and families. Resolved Problems Problem Noted Date Diagnosed Date Resolved Date Cough 10/26/2019 07/30/2020 Sinusitis, acute 10/26/2019 07/30/2020
== END 2025-02-06 10:09 | disposition home or self-care (01) ==
LOC: HO.HMCC 09:06
PROVIDERS: PCP Internal Medicine; Visit Provider Internal Medicine
DX: Z00.00 Encounter for general adult medical examination without abnormal findings (principal); I48.91 Unspecified atrial fibrillation; I10 Essential (primary) hypertension; E78.5 Hyperlipidemia, unspecified; Z85.3 Personal history of malignant neoplasm of breast; Z23 Encounter for immunization

== ENCOUNTER → 2025-02-06 09:05 | Outpatient (BNVA) | payer MEDICARE, SELFPAY | PROVIDERS: PCP Internal Medicine; Visit Provider Internal Medicine | DX: I10 Essential (primary) hypertension (principal); E78.5 Hyperlipidemia, unspecified; I48.19 Other persistent atrial fibrillation; C79.81 Secondary malignant neoplasm of breast; Z23 Encounter for immunization | CPT/HCPCS: 90471; 90677; 96127; 99397 ==